=== PATIENT | female | born 1985 ===

== ENCOUNTER 2025-04-02 12:57 | Emergency (ER) | payer MEDICAID, SELFPAY ==
[2025-04-02 13:31] VITALS: BP 163/90; PULSE 116; RESP 18; TEMP 36.4; O2SAT 99; BMI 24.8
--- NOTE | 2025-04-02 13:36 | ED_ITS ---
HPI - General Adult General Chief complaint: General Medical Stated complaint: infection?, hearing issues Time Seen by Provider: 04/02/25 16:03 History of Present Illness ED Provider: autumn KABA narrative: Date & Time: 2025-04-02 Patient Name: MARIBEL: N: Author / Clinician: Jose Marie MD (Emergency Medicine) Chief Complaint Feeling very cold and unwell with throat tightness, bilateral ear pain/hearing loss, head pressure, and concern for spreading dental infection after tooth extraction earlier today. History of Present Illness The patient presents to the ED reporting a one-year history of right mandibular tooth pain/infection. The tooth was extracted this morning (08:30?10:00 AM) at a local dental clinic. The patient is unsure if the dentist?s antibiotic prescription was transmitted to the pharmacy and is concerned the infection has ?spread,? describing severe malaise and a sensation of imminent . Additional symptoms include: - Bilateral ear pain with inability to hear from the left ear (ongoing ?1 year) - Head pressure described as ?head feels like a helium balloon? - Throat pain and sensation of throat closing/choking - Shortness of breath with productive cough (?spitting stuff from chest?) - Lightheadedness; history of syncope episodes (~5 minutes duration) - Feeling very cold Past medical context noted by the patient: - ?Bad? diabetes; previously on Mounjaro and metformin - Reports recent weight gain of 25 lbs (from 118 lbs), possibly related to diabetes and medication lapse - Prone to pneumonia; recent severe pneumonia treated in [place] - History of adenoidectomy ([facility], childhood) - Reports prior diagnosis of ?edema? of the right ear or parotid region (details unclear) - Moved back to [place] ~2 weeks ago; PCP visit scheduled 06-05-2025 Review of Systems Positive: - General: Feeling very cold, severe discomfort, anxiety/worry. - HEENT: Bilateral ear pain, left-sided hearing loss x1 year, head pressure, throat pain, sensation of throat closing/choking, recent right lower molar extraction, ability to ?taste infection.? - Respiratory: Shortness of breath, productive cough, difficulty breathing. - Neurologic: Lightheadedness, history of syncope (past episodes lasting ~5 minutes). - Psychiatric: Anxiety/fear of dying. No other systems were discussed. Physical Examination Vital Signs: Measure Value ------- ----- Physical Exam: - General: Patient appears uncomfortable and anxious but in no acute respiratory distress. - Head/Face: Normal appearance; no visible swelling noted on exam. - Ears: Bilateral tympanic membranes visualized and ?look fine.? No acute infection seen. - Nose/Sinuses: No specific findings documented; patient reports pressure. - Mouth/Throat: Airway patent with good air movement. Oropharynx examined; extraction site of right lower molar visualized without comment of abscess or purulence. ?Say ah??normal. - Neck: No mention of lymphadenopathy or swelling on exam. - Lungs: Air moving well; no acute findings documented. - Cardiovascular: No specific abnormal findings reported. - Abdomen/Extremities: Denies abdominal pain or leg swelling; no findings documented. Emergency Department Course ? HEENT examination performed; ears and throat appeared normal aside from post- extraction site. ? Discussed patient?s concern about possible spreading dental infection; plan to prescribe antibiotics for oral infection if not already sent by dentist. ? Medication reconciliation performed; patient provided pharmacy refill list (Mounjaro, metformin, lamotrigine, venlafaxine, oxybutynin, cetirizine). Provider to refill chronic meds deemed appropriate. ? ENT referral information provided for chronic ear/hearing/sinus complaints. ? Nursing to administer ED medications as ordered (specific meds not stated in transcript). ? Patient counseled regarding need for PCP follow-up (appointment scheduled 06-05-2025). Medications Home/Chronic: Mounjaro 15 mg, metformin 500 mg BID, lamotrigine 200 mg daily, venlafaxine XR 225 mg daily, oxybutynin (intermittent), cetirizine OTC. Given/Prescribed in ED: Antibiotic for post-extraction dental infection (specific agent not documented in transcript). Chronic medication refills sent as reviewed above. Allergies No known drug allergies reported. Assessment & Plan Diagnosis: 1. Post-extraction dental infection (right mandibular molar) ? concern for inadequate outpatient antibiotic coverage. 2. Chronic bilateral ear pain with left hearing loss; chronic sinus/ear pressure. 3. Type 2 diabetes mellitus ? medication management issues (running out of Mounjaro/metformin); reports recent weight gain of 25 lbs. 4. Medication refills needed (lamotrigine, venlafaxine, others as listed). 5. Anxiety related to current illness. Plan: - Prescribe oral antibiotics for dental infection (sent to patient?s preferred pharmacy; specific agent per ED formulary). - Refill chronic medications as provided on patient list (Mounjaro, metformin, lamotrigine, venlafaxine, oxybutynin, cetirizine). - Provide ENT referral for evaluation of chronic ear/hearing/sinus complaints. - Encourage close follow-up with scheduled PCP appointment on 06-05-2025; advised to seek care sooner if symptoms worsen. Disposition Social / Living Situation Recently relocated back to [place] (~2 weeks ago); resides at [facility]. Past Medical/Surgical History - Type 2 diabetes mellitus - Recurrent pneumonia - Chronic ear/hearing issues (left > right) ? etiology undetermined - History of syncope episodes - Adenoidectomy (childhood, [facility]) Problem List 1. Dental infection ? post extraction 2. Diabetes mellitus ? medication lapse 3. Chronic ear/sinus complaints with hearing loss 4. Medication refills required 5. Anxiety Related Data Previous Rx's ?Medication ?Instructions ?Recorded amoxicillin 500 mg capsule 500 mg PO TID 5 days #15 ca ps 04/02/25 lamotrigine 200 mg tablet 200 mg PO DAILY #30 tabs 08/22 metformin 500 mg tablet 500 mg PO BID 30 days #60 ta bs 04/02/25 venlafaxine 225 mg tablet,extended 225 mg PO DAILY #30 tabs 04/02/25 release 24 hr Allergies Allergy/AdvReac Type Severity Reaction Status Date / Time No Known Allergies Allergy Verified 04/02/25 13:35 [facility] Social History Social History Advance Directives: No Advance Directives Information Provided: No Physical Exam ED Vital Signs: Vital Signs - 24 hr 04/02/25 16:00 04/02/25 17:16 Temperature 98.5 F 98.5 F Pulse Rate 94 94 Respiratory Rate 18 Blood Pressure 121/75 121/75 Pulse Oximetry 99 99 Oxygen Delivery Method Room Air Room Air BMI result Body Mass Index 24.8 Course Course Course Narrative: RME: 39-year-old female presents to ED for multiple complaints. Patient right leg willing to extracted this morning placed antibiotics but not complaining of abdominal pain pain spreading to the jaw and throat and concerned due to history of adrenal adenoma were as not been addressed. Patient is from [place]. On exam negative for signs of swelling or floor of the tongue, tongue swelling, pus drainage abscess or swelling of the gums, drawn line, or face. Negative for trismus or drooling/change in voice. Tonsils normal. Labs ordered Medical Decision Making Lab Data 04/02/25 14:51 04/02/25 14:51 Labs: Lab Results 04/02/25 Range/Units 14:51 WBC 7.7 (4.8-10.8) X10*3/uL RBC 3.73 L (4.20-5.50) X10*6/uL Hgb 10.3 L (12.0-16.0) g/dl Hct 33.0 L (37.0-47.0) % MCV 88.5 (80.0-98.0) fL MCH 27.6 (27.0-33.0) pg MCHC 31.2 (31.0-35.0) g/dl RDW 18.2 H (11.0-16.0) % Plt Count 518 H (160-400) X10*3/uL MPV 9.7 (9.4-12.3) fL Immature Gran % (Auto) 0.3 (0.0-0.4) % Neut % (Auto) 56.4 (45-73) % Lymph % (Auto) 33.1 (20-40) % [place] % (Auto) 8.2 (2-11) % Eos % (Auto) 0.8 (0-4) % Baso % (Auto) 1.2 (0-2) % Lymph # (Auto) 2.6 (1.2-4.9) X10*3/uL [place] # (Auto) 0.6 (0.1-1.2) X10*3/uL Eos # (Auto) 0.1 (0.0-0.4) X10*3/uL Baso # (Auto) 0.1 (0.0-0.2) X10*3/uL Abs Immat Gran (auto) 0.02 (0.00-0.03) X10*3/uL Absolute Neuts (auto) 4.4 (2.0-8.3) x10*3/uL Absolute Nucleated RBC 0.000 (0.0-0.012) X10*3/uL Nucleated RBC % (auto) 0.0 (0.0-0.2) /100WBC Sodium 139 (135-145) mmol/L Potassium 4.0 (3.3-5.1) mmol/L Chloride 107 (96-108) mmol/L Carbon Dioxide 26 (22-29) mmol/L Anion Gap 10 L (12-20) BUN 13 (9-16) mg/dL Creatinine 0.63 (0.5-1.4) mg/dL Estim Creat Clear Calc 106.8 Estimated GFR > 60 Random Glucose 90 (60-115) mg/dL Calcium 8.9 (8.4-10.2) mg/dL Total Bilirubin 0.2 (0.0-1.0) mg/dL AST 30 (5-31) U/L ALT 26 (0-31) U/L Alkaline Phosphatase 91 (39-117) U/L Total Protein 7.4 (6.5-8.0) g/dL Albumin 4.2 (3.5-5.0) g/dL Lipase 29 (8-78) U/L Beta HCG, Quant < 2 mIU/mL Urine Color Yellow Urine Appearance Clear Urine pH 6.5 (5.0-9.0) Ur Specific [place] 1.025 (1.005-1.025) Urine Protein Negative (Neg-Trace) mg/dL Urine Glucose (UA) Negative (Negative) mg/dL Urine Ketones Negative (Negative) mg/dL Urine Blood Negative (Negative) Urine Nitrite Negative (Negative) Ur Leukocyte Esterase Negative (Negative) Influenza Type A (PCR) NEGATIVE (Negative) Influenza Type B (PCR) NEGATIVE (Negative) RSV RNA Qual (PCR) NEGATIVE (Negative) SARS-CoV-2 RNA (RT-PCR) NEGATIVE (Negative) S. pyogenes GrpA DANYELLE Negative (Negative) Discharge Plan Discharge Clinical Impression: Dental infection, Pre-diabetes Patient Disposition: Home, Self-Care Instructions: Dental Abscess (ED) Additional Instructions: follow with ENT for your hearing issue: Akila?[phone] tel:[phone] Prescriptions: New lamotrigine 200 mg tablet 200 mg PO DAILY Qty: 30 0RF venlafaxine 225 mg tablet extended release 24hr 225 mg PO DAILY Qty: 30 0RF metformin 500 mg tablet 500 mg PO BID 30 Days Qty: 60 0RF amoxicillin 500 mg capsule 500 mg PO TID 5 Days Qty: 15 0RF Interventions: ED Discharge Assessment Last Done: 04/02/25 17:16 Discharge Date/Time: 04/02/25 17:17 Print Language: [place]er
[2025-04-02 15:00] LABS: MANUAL DIFF FLAG NO
[2025-04-02 15:05] LABS: Appearance Urine Clear; Glucose Urine UA Negative (Negative); PH 6.5 (5.0-9.0); Specific Gravity - Urine 1.025 (1.005-1.025)
[2025-04-02 15:08] LABS: Hematocrit 33.0 % (37.0-47.0); Hemoglobin 10.3 g/dl (12.0-16.0); Imm Gran Abs Auto 0.02 X10*3/uL (0.00-0.03); Imm Gran Pct Auto 0.3 % (0.0-0.4); Lymphocytes Absolute Auto 2.6 X10*3/uL (1.2-4.9); Mean Corpuscular HGB Conc 31.2 g/dl (31.0-35.0); Mean Corpuscular Hemoglobin 27.6 pg (27.0-33.0); Mean Corpuscular Volume 88.5 fL (80.0-98.0); NRBC Abs Auto 0.000 X10*3/uL (0.0-0.012); NRBC Pct Auto 0.0 /100WBC (0.0-0.2); Platelet Count 518 X10*3/uL (160-400); Red Blood Count 3.73 X10*6/uL (4.20-5.50); White Blood Count 7.7 X10*3/uL (4.8-10.8)
[2025-04-02 15:10] LABS: IDNOW Serial# 55D5AD1C; Strep A Nucleic Acid Negative (Negative)
[2025-04-02 15:27] LABS: Alanine Aminotransferase 26 U/L (0-31); Albumin Level 4.2 g/dL (3.5-5.0); Alkaline Phosphatase 91 U/L (39-117); Anion Gap 10 (12-20); Aspartate Amino Transferase 30 U/L (5-31); Blood Urea Nitrogen 13 mg/dL (9-16); Calcium 8.9 mg/dL (8.4-10.2); Carbon Dioxide 26 mmol/L (22-29); Chloride 107 mmol/L (96-108); Creatinine Clr Calc Pharmacy 106.8; Estimated Glomerular Filt Rate > 60; Lipase 29 U/L (8-78); Potassium 4.0 mmol/L (3.3-5.1); Sodium 139 mmol/L (135-145); Total Protein 7.4 g/dL (6.5-8.0)
[2025-04-02 15:40] LABS: Resp Syncy Virus RNA Qual PCR NEGATIVE (Negative); SARS COV2 PCR INHOUSE NEGATIVE (Negative)
[2025-04-02 16:00] VITALS: BP 121/75; PULSE 94; TEMP 36.9; O2SAT 99
--- NOTE | 2025-04-02 17:15 | PC.NURSE ---
pt not found at bedside to medicate and give d/c paperwork hospital attire on the bed
[2025-04-02 17:16] VITALS: BP 121/75; PULSE 94; RESP 18; TEMP 36.9; O2SAT 99
== END 2025-04-02 17:17 | disposition home or self-care (01) ==
PROVIDERS: Physician Assistant; Emergency Provider Emergency Medicine
DX: K04.7 Periapical abscess without sinus (principal); H92.03 Otalgia, bilateral; R73.03 Prediabetes; Z03.818 Encounter for observation for suspected exposure to other biological agents ruled out
CPT/HCPCS: 36415; 80053; 81003; 83690; 84702; 85025; 87637; 87651; 99283

== ENCOUNTER 2025-04-15 09:05 | Inpatient (IN) | payer MEDICARE, MEDICAID, SELFPAY ==
[2025-04-15 09:16] VITALS: BP 164/90; PULSE 110; RESP 18; TEMP 36.3; O2SAT 99; BMI 26.3
[2025-04-15 09:34] LABS: Appearance Urine Clear; Glucose Urine UA Negative (Negative); PH 6.0 (5.0-9.0); Specific Gravity - Urine 1.015 (1.005-1.025)
--- NOTE | 2025-04-15 09:34 | MHC.EDTECH ---
Patient changed over in family room with security present. Facial body jewelery still in place. patient resting in room four. Belongings locked in [place] port, three bags total.
[2025-04-15 09:36] LABS: UPreg QC Valid YES
--- NOTE | 2025-04-15 09:39 | ED_ITS ---
HPI - General Adult General Chief complaint: Psychiatric Symptoms Stated complaint: crisis Time Seen by Provider: 04/15/25 09:38 Source: patient Mode of arrival: ambulatory Limitations: no limitations History of Present Illness ED Provider: Liya Fernandez PA-C HPI narrative: Patient is a 39 year old female with a history of depression presenting to the emergency department today with increased depression. Patient states that she recently moved back to the area. Patient states that she is feeling more depressed but is not suicidal or homicidal. Patient states that she does not have any providers here and is not on any medication. Patient denies any other complaints at this time. Relieving factors: none Exacerbating factors: none Associated symptoms: denies other symptoms Treatments prior to arrival: none Related Data Previous Rx's ?Medication ?Instructions ?Recorded acetaminophen 325 mg tablet 650 mg (2 x 325 mg) PO Q6H PRN 04/17/25 Pain, Mild (Pain Scale 1-3) #0 tabs alprazolam 0.5 mg tablet 2 mg (4 x 0.5 mg) PO BID #14 tabs 04/17/25 dextroamphetamine-amphetamine ER 20 mg (2 x 10 mg) PO DAILY #7 caps 04/17/25 10 mg 24hr capsule,extend release (Adderall XR) lithium carbonate 300 mg tablet 300 mg PO DAILY #7 tab s 04/17/25 metformin 500 mg tablet 500 mg PO BIDWM #14 tabs nicotine (polacrilex) 2 mg buccal 2 mg buccal Q2H PRN Nicotine 04/17/25 lozenge Cravings #50 ea tirzepatide 15 mg/0.5 mL 15 mg (0.5 mL) subcut QWEEK #2 mL 04/17/25 subcutaneous pen injector (Mounjaro) Allergies Allergy/AdvReac Type Severity Reaction Status Date / Time No Known Allergies Allergy Verified 04/15/25 09:18 Review of Systems 2 Constitutional: Constitutional: Reports as per HPI Eyes: Eyes: Reports as per HPI ENT: Reports as per HPI Cardiovascular: Cardiovascular: Reports as per HPI Respiratory: Respiratory: Reports as per HPI Gastrointestinal: Gastrointestinal: Reports as per HPI Genitourinary: Genitourinary: Reports as per HPI Musculoskeletal: Musculoskeletal: Reports as per HPI Integumentary/Breasts: Skin/Breast: Reports as per HPI Neurologic: Reports as per HPI Psychiatric: Psychiatric: Reports as per HPI Endocrine: Endocrine: Reports as per HPI Hematologic/Lymphatic: Hematologic/Lymphatic: Reports as per HPI Allergic/Immunologic: Allergic/Immunologic: Reports as per HPI [facility] Past Medical History Attestation statement: The following information was validated with the patient. Source: old records reviewed and nursing notes reviewed Social History Social History Household Members: Spouse Housing: House Do you presently have visiting nurse or other home services: No Patient Tobacco Use Status: Never used Tobacco Currently Displaying Signs/Symptoms of Drug Intoxication Withdrawal: No Advance Directives: No Advance Directives Information Provided: Yes Do you have thoughts of harming others: None Do you have a plan to hurt others: No Plan Recently lost weight without trying: No How much weight loss: Not applicable Eating poorly because of decreased appetite: Yes Nutrition screen score: 1 Nutrition Risks: No Nutritional Risk Patient : No : No Poor oral hygiene: No Physical Exam ED Vital Signs: Vital Signs - 24 hr 04/15/25 09:16 04/15/25 14:00 04/16/25 03:20 Temperature 97.3 F 98.0 F Pulse Rate 110 H 90 Respiratory Rate 18 20 18 Blood Pressure 164/90 H 152/88 H 146/84 H Pulse Oximetry 99 100 Oxygen Delivery Method Room Air Room Air BMI result Body Mass Index 26.3 Const General: cooperative, no acute distress, alert and awake Nutritional Appearance: well nourished Orientation/consciousness: patient oriented x3 HENMT Head: Yes normal to inspection and Yes atraumatic Ears: hearing grossly normal bilaterally and external ears normal General nose exam: Normal external nose present, no nasal discharge noted and no epistaxis Face and sinus: Yes normal facial exam, No abrasion and No laceration Mouth: Normal oral and palatal mucosa present, no drooling and no muffled voice Eyes General: appearance normal, both eyes and all related structures Periorbital: periorbital findings normal Eyelids: Yes eyelids normal Conjunctivae: conjunctivae normal Pupils: Equal, round and reactive pupils present EOM: EOMs intact bilaterally Neck Neck: Yes normal visual inspection and Yes full ROM Resp Effort & Inspection: normal respiratory effort and able to speak in complete sentences Neuro General: patient oriented x3, moves all extremities and CN's II-XI intact bilaterally Cranial nerves: Yes Equal, round and reactive pupils present Cognition (Neuro): normal cognition Extrem General: Yes normal to inspection, Yes full ROM and Yes capillary refill normal Psych Appearance: grossly normal Mental Status: mental status grossly normal Affect: Sad affect present Attitude: cooperative Course Reevaluation(s) Reevaluation #1: Time: 05:07 Date: 04/16/25 Provider: Fabián Gonzalez MD Patient in physician observation for psychiatric evaluation.? No acute events reported overnight. No current complaints. VS stable, blood pressure of 146/84, patient asymptomatic we will monitor BP.? Patient was evaluated by the CARE team , meets inpatient level of care, patient is and in-patient bed search. Will continue to monitor. Time: 15:14 Date: 04/16/25 Provider: Fabián Gonzalez MD Physician observation ended at 15:14. Patient to be admitted as inpatient to psychiatry. Medications Administered Generic Name Dose Route Start Last Admin Trade Name Freq PRN Reason Stop Dose Admin Acetaminophen 650 mg 04/15/25 19:21 04/15/25 19:35 Acetaminophen 325 Mg Tablet PO 650 mg Q6H PRN Administration Pain, Mild (Pain Scale 1-3) Alprazolam 2 mg 04/16/25 21:00 04/17/25 06:23 Alprazolam 0.5 Mg Tablet PO 2 mg BID MELINA Administration Amphetamine/Dextroamphetamine 20 mg 04/17/25 09:00 04/17/25 09:16 Dextroamphetamine/Amphetamine Xr 10 Mg Cap.Er.24h PO 20 mg DAILY MELINA Administration Nicotine Polacrilex 2 mg 04/16/25 19:08 04/16/25 22:04 Nicotine Polacrilex Lozenge 2 Mg Lozenge BUCCAL 2 mg Q2H PRN Administration Nicotine Cravings Discontinued Medications Generic Name Dose Route Start Last Admin Trade Name Freq PRN Reason Stop Dose Admin Acetaminophen/Butalbital/Caffeine 1 tab 04/15/25 22:54 04/15/25 23:33 Butalb/Acetamin/Caff 50/325/40 Tablet PO 04/15/25 22:55 1 tab ONCE ONE Administration Alprazolam 2 mg 04/16/25 04:54 04/16/25 05:15 Alprazolam 0.5 Mg Tablet PO 04/16/25 04:55 2 mg ONCE ONE Administration Amphetamine/Dextroamphetamine 20 mg 04/16/25 04:54 04/16/25 05:13 Dextroamphetamine/Amphetamine Xr 10 Mg Cap.Er.24h PO 04/16/25 04:55 20 mg ONCE ONE Administration Ibuprofen 600 mg 04/15/25 19:21 04/15/25 19:35 Ibuprofen 600 Mg Tablet PO 600 mg Q6H PRN Administration Pain, Moderate(Pain Scale 4-6) [place] Carbonate 300 mg 04/16/25 21:00 04/16/25 21:13 [place] Carbonate Er 300 Mg Tablet.Er PO 300 mg BEDTIME MELINA Administration Lorazepam 1 mg 04/16/25 15:22 04/16/25 15:34 Lorazepam 1 Mg Tablet PO 1 mg Q4H PRN Administration Anxiety Nicotine Polacrilex 2 mg 04/16/25 11:22 04/16/25 11:42 Nicotine Polacrilex 2 Mg Gum BUCCAL 2 mg Q2H PRN Administration Nicotine Cravings Medical Decision Making Medical Decision Making MDM Narrative: Patient is a 39 year old female with a history of depression presenting to the emergency department today with increased depression. Patient's physical exam was as noted in the physical exam portion of this note. Patient's blood work was unremarkable. Patient's urine showed no acute process. Patient's EKG showed no obvious evidence of arrhythmia, ischemia, or infarct. Patient spoke with the CARE team who recommended inpatient level of psychiatric care. I explained my physical exam findings as well as all test results to the patient. I answered all questions asked by the patient. Patient placed in observation pending either admission here at [facility] for inpatient level of psychiatric care or transfer to an appropriate inpatient psychiatric facility. I was informed by our care team that patient will need inpatient level of care. We checked [facility] in the [employer] [place], patient does take Adderall 20 mg extended release every day and Xanax 2 mg b.i.d. Patient does not want to take any other medication that she has already been prescribed. We went ahead and prescribed the above-mentioned medications. Patient needs inpatient level of care. He did not continue trying to contact the patient's for further information. Differential Diagnosis Differential Diagnoses: The differential diagnosis associated with the presentation includes Depression Admission/Observation Consideration of admission/observation: Escalation of care including admission/observation considered Patient will either be admitted here at [facility] for inpatient level of psychiatric care or transfer to an appropriate inpatient psychiatric facility. Consult Healthcare Provider Management of the patient was discussed with: Behavioral Health Provider (spoke to the CARE team as noted in the MDM Rationale portion of this note. ) Lab Data [facility] Lab Attestation statement: I reviewed the patient's lab results. My interpretation of these results are in the MDM Rationale portion of this note. 04/15/25 09:58 04/15/25 09:58 Labs: Lab Results 04/15/25 04/15/25 04/16/25 Range/Units 09:23 09:58 03:24 WBC 6.3 (4.8-10.8) X10*3/uL RBC 3.04 L (4.20-5.50) X10*6/uL Hgb 8.6 L (12.0-16.0) g/dl Hct 27.1 L (37.0-47.0) % MCV 89.1 (80.0-98.0) fL MCH 28.3 (27.0-33.0) pg MCHC 31.7 (31.0-35.0) g/dl RDW 17.7 H (11.0-16.0) % Plt Count 312 D (160-400) X10*3/uL MPV 9.6 (9.4-12.3) fL Immature Gran % (Auto) 0.2 (0.0-0.4) % Neut % (Auto) 60.1 (45-73) % Lymph % (Auto) 26.7 (20-40) % [place]clean % (Auto) 11.0 (2-11) % Eos % (Auto) 1.0 (0-4) % Baso % (Auto) 1.0 (0-2) % Lymph # (Auto) 1.7 (1.2-4.9) X10*3/uL [place]clean # (Auto) 0.7 (0.1-1.2) X10*3/uL Eos # (Auto) 0.1 (0.0-0.4) X10*3/uL Baso # (Auto) 0.1 (0.0-0.2) X10*3/uL Abs Immat Gran (auto) 0.01 (0.00-0.03) X10*3/uL Absolute Neuts (auto) 3.8 (2.0-8.3) x10*3/uL Absolute Nucleated RBC 0.000 (0.0-0.012) X10*3/uL Nucleated RBC % (auto) 0.0 (0.0-0.2) /100WBC Sodium 139 (135-145) mmol/L Potassium 3.6 (3.3-5.1) mmol/L Chloride 110 H (96-108) mmol/L Carbon Dioxide 23 (22-29) mmol/L Anion Gap 10 L (12-20) BUN 13 (9-16) mg/dL Creatinine 0.58 (0.5-1.4) mg/dL Estim Creat Clear Calc 127.9 Estimated GFR > 60 POC Glucose 110 (60-115) mg/dL Random Glucose 114 (60-115) mg/dL Calcium 8.6 (8.4-10.2) mg/dL Total Bilirubin 0.2 (0.0-1.0) mg/dL AST 32 H (5-31) U/L ALT 37 H (0-31) U/L Alkaline Phosphatase 105 (39-117) U/L Total Protein 6.1 L (6.5-8.0) g/dL Albumin 3.4 L (3.5-5.0) g/dL Urine Color Yellow Urine Appearance Clear Urine pH 6.0 (5.0-9.0) Ur Specific [place] 1.015 (1.005-1.025) Urine Protein Negative (Neg-Trace) mg/dL Urine Glucose (UA) Negative (Negative) mg/dL Urine Ketones Negative (Negative) mg/dL Urine Blood Negative (Negative) Urine Nitrite Negative (Negative) Ur Leukocyte Esterase Negative (Negative) Urine Test NEGATIVE (NEGATIVE) Urine Opiates Screen Not Detected (Not Detect) Ur Buprenorphine Scrn Not Detected (Not Detect) ng/mL Ur Oxycodone Screen Not Detected (Not Detect) ng/mL Urine Methadone Screen Not Detected (Not Detect) ng/mL Urine Fentanyl Screen Not Detected (Not Detect) Ur Barbiturates Screen Not Detected (Not Detect) Ur Phencyclidine Scrn Not Detected (Not Detect) Ur Amphetamines Screen Not Detected (Not Detect) U Benzodiazepines Scrn Not Detected (Not Detect) Urine Cocaine Screen Not Detected (Not Detect) U Marijuana (THC) Screen POSITIVE H (Not Detect) Influenza Type A (PCR) (Negative) Influenza Type B (PCR) (Negative) RSV RNA Qual (PCR) (Negative) SARS-CoV-2 RNA (RT-PCR) (Negative) 04/16/25 Range/Units 03:28 WBC (4.8-10.8) X10*3/uL RBC (4.20-5.50) X10*6/uL Hgb (12.0-16.0) g/dl Hct (37.0-47.0) % MCV (80.0-98.0) fL MCH (27.0-33.0) pg MCHC (31.0-35.0) g/dl RDW (11.0-16.0) % Plt Count (160-400) X10*3/uL MPV (9.4-12.3) fL Immature Gran % (Auto) (0.0-0.4) % Neut % (Auto) (45-73) % Lymph % (Auto) (20-40) % Mclean % (Auto) (2-11) % Eos % (Auto) (0-4) % Baso % (Auto) (0-2) % Lymph # (Auto) (1.2-4.9) X10*3/uL [place]clean # (Auto) (0.1-1.2) X10*3/uL Eos # (Auto) (0.0-0.4) X10*3/uL Baso # (Auto) (0.0-0.2) X10*3/uL Abs Immat Gran (auto) (0.00-0.03) X10*3/uL Absolute Neuts (auto) (2.0-8.3) x10*3/uL Absolute Nucleated RBC (0.0-0.012) X10*3/uL Nucleated RBC % (auto) (0.0-0.2) /100WBC Sodium (135-145) mmol/L Potassium (3.3-5.1) mmol/L Chloride (96-108) mmol/L Carbon Dioxide (22-29) mmol/L Anion Gap (12-20) BUN (9-16) mg/dL Creatinine (0.5-1.4) mg/dL Estim Creat Clear Calc Estimated GFR POC Glucose (60-115) mg/dL Random Glucose (60-115) mg/dL Calcium (8.4-10.2) mg/dL Total Bilirubin (0.0-1.0) mg/dL AST (5-31) U/L ALT (0-31) U/L Alkaline Phosphatase (39-117) U/L Total Protein (6.5-8.0) g/dL Albumin (3.5-5.0) g/dL Urine Color Urine Appearance Urine pH (5.0-9.0) Ur Specific [place] (1.005-1.025) Urine Protein (Neg-Trace) mg/dL Urine Glucose (UA) (Negative) mg/dL Urine Ketones (Negative) mg/dL Urine Blood (Negative) Urine Nitrite (Negative) Ur Leukocyte Esterase (Negative) Urine Test (NEGATIVE) Urine Opiates Screen (Not Detect) Ur Buprenorphine Scrn (Not Detect) ng/mL Ur Oxycodone Screen (Not Detect) ng/mL Urine Methadone Screen (Not Detect) ng/mL Urine Fentanyl Screen (Not Detect) Ur Barbiturates Screen (Not Detect) Ur Phencyclidine Scrn (Not Detect) Ur Amphetamines Screen (Not Detect) U Benzodiazepines Scrn (Not Detect) Urine Cocaine Screen (Not Detect) U Marijuana (THC) Screen (Not Detect) Influenza Type A (PCR) NEGATIVE (Negative) Influenza Type B (PCR) NEGATIVE (Negative) RSV RNA Qual (PCR) NEGATIVE (Negative) SARS-CoV-2 RNA (RT-PCR) NEGATIVE (Negative) Independent Interpretation I performed an independent interpretation of an: EKG Interpretation: I independently interpreted this EKG and am in agreement with the below findings: Vent. Rate: 92 BPM Atrial Rate: 92 BPM P-R Int: 158 ms QRS Dur: 74 ms QT Int: 350 ms P-R-T Axes: 68 8 28 degrees QTcB Int: 432 ms Normal sinus rhythm No previous ECGs available DD/ 1222 Critical Care Time Critical Care Time Critical Care Time: Yes Total Critical Care Time: 36 Attestation: I spent 36 minutes of Critical Care Time with this patient. This does not include time spent on separately reported billable procedures. Discharge Plan Discharge Clinical Impression: Depression Qualifiers: Depression Type: other depression Qualified Code(s): F32.89 - Other specified depressive episodes Patient Disposition: Admitted As Inpatient Interventions: Admission Worksheet (ED) Last Done: 04/16/25 15:14 Discharge Date/Time: 04/16/25 15:15
[2025-04-15 09:46] LABS: Cannabinoid Screen Urine POSITIVE (Not Detect)
[2025-04-15 10:16] LABS: MANUAL DIFF FLAG NO
[2025-04-15 10:19] LABS: Hematocrit 27.1 % (37.0-47.0); Hemoglobin 8.6 g/dl (12.0-16.0); Imm Gran Abs Auto 0.01 X10*3/uL (0.00-0.03); Imm Gran Pct Auto 0.2 % (0.0-0.4); Lymphocytes Absolute Auto 1.7 X10*3/uL (1.2-4.9); Mean Corpuscular HGB Conc 31.7 g/dl (31.0-35.0); Mean Corpuscular Hemoglobin 28.3 pg (27.0-33.0); Mean Corpuscular Volume 89.1 fL (80.0-98.0); NRBC Abs Auto 0.000 X10*3/uL (0.0-0.012); NRBC Pct Auto 0.0 /100WBC (0.0-0.2); Platelet Count 312 X10*3/uL (160-400); Red Blood Count 3.04 X10*6/uL (4.20-5.50); White Blood Count 6.3 X10*3/uL (4.8-10.8)
[2025-04-15 10:37] LABS: Alanine Aminotransferase 37 U/L (0-31); Albumin Level 3.4 g/dL (3.5-5.0); Alkaline Phosphatase 105 U/L (39-117); Anion Gap 10 (12-20); Aspartate Amino Transferase 32 U/L (5-31); Blood Urea Nitrogen 13 mg/dL (9-16); Calcium 8.6 mg/dL (8.4-10.2); Carbon Dioxide 23 mmol/L (22-29); Chloride 110 mmol/L (96-108); Creatinine Clr Calc Pharmacy 127.9; Estimated Glomerular Filt Rate > 60; Potassium 3.6 mmol/L (3.3-5.1); Sodium 139 mmol/L (135-145); Total Protein 6.1 g/dL (6.5-8.0)
--- OUTSIDE RECORDS SUMMARY | 2025-04-15 10:39 | XMS_ITS | Patient Health Record ---
Author Organization [facility] Address [address] [place] [address] Care Team Providers Care Plugger Man Name Role Phone NO, PCP Primary Care Provider [facility], Nursing Unavailable [phone] Poly Zhong Unavailable [facility], W Unavailable [phone] Reason For Referral No Information Encounters Encounter Location Date Provider Diagnosis [address] [id number] 03/24/2025 [place] [address] [place] [address] 04/02/2025 [facility] [employer] [address] [place] [phone] 03/20/2025 Poly Zhong Plan Of Treatment Next Appt Details Provider Name:Nursing [facility], 06/05/2025 01:00:00 PM, [address] [place] [address], [phone], Insurance Providers Payer Name Payer Address Payer Phone Subscriber Number Group Number Insured Name Patient Relationship to Insured Coverage Start Date Coverage End Date [place] Medicaid Standard [address] [place] [address] [phone] [id number] Genevieve Akers Self - patient is the insured
--- NOTE | 2025-04-15 12:20 | ECG_ITS ---
Test Reason : MEDICAL CLEARANCE Blood Pressure : */* mmHG Vent. Rate : 92 BPM Atrial Rate : 92 BPM P-R Int : 158 ms QRS Dur : 74 ms QT Int : 350 ms P-R-T Axes : 68 8 28 degrees QTcB Int : 432 ms Normal sinus rhythm Possible Left atrial enlargement Low voltage QRS Borderline ECG No previous ECGs available Referred By: Liya Fernandez Electronically Signed By: Alfred Lentz
[2025-04-15 14:00] VITALS: BP 152/88; RESP 20
--- NOTE | 2025-04-15 18:23 | PC.NURSE ---
Pts comes to visit, she is tearful when he arrives, he stays for a short time.
[2025-04-15] MEDS: Butalb/Acetamin/Caff 50/325/40 TABLET 1 TAB PO (23:33)
--- NOTE | 2025-04-15 23:33 | PC.NURSE ---
Addendum entered by Mayuri Chandra RN 04/16/25 03:46: Per completed med rec by per previous RN, no known home medications listed. pt states she takes several home medications, found a list in previous visit reports. Pt requesting to go over medications with MD at this time. Addendum entered by Mayuri Chandra RN 04/16/25 03:25: pt requesting to be revaluated because she feels like shes dying and her organs are shutting down. pt reports increased sweating, dry heaves, vomiting and diarrhea (not noted on this shift and not reported from previous RN). 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 Pt has not displayed any signs or symptoms of distress, VSS, POC 110, and SARS swab pending at this time. Addendum entered by Mayuri Chandra RN 04/16/25 02:14: pt noted to be irritable and restless. pt given new gown per request, pt continues to complaining of headache and requesting her Excedrin, and asking tech when she can go up stairs. Tech explained to pt transfers are not ypically done in the middle of night, pt noted to be dismissive and rude and asked to be left alone. Original Note: assumed care for pt at 2100. pt awake and resting in bed with eyes closed complaining of 10/10 headache. Pt medicated per jun. plan of care ongoing
[2025-04-16 03:20] VITALS: BP 146/84; PULSE 90; RESP 18; TEMP 36.7; O2SAT 100
[2025-04-16 03:29] LABS: Glucose, Whole Blood 110 mg/dL (60-115)
[2025-04-16 04:09] LABS: Resp Syncy Virus RNA Qual PCR NEGATIVE (Negative); SARS COV2 PCR INHOUSE NEGATIVE (Negative)
[2025-04-16] MEDS: Dextroamphetamine/Amphetamine XR 10 MG CAP.ER.24H 20 MG PO (05:13)
--- NOTE | 2025-04-16 07:21 | PC.NURSE ---
Assumed care of patient at 0645, patient appears to be in no apparent distress this am, calm and cooperative, offering no complaints to this RN. Continue plan of care for IPLOC
[2025-04-16 15:30] VITALS: BP 134/95; PULSE 114; RESP 20; TEMP 36.4; O2SAT 100; BMI 26.5
--- NOTE | 2025-04-16 16:25 | PC.ADMIT ---
Pt arrived on the unit at 1519 and she is here on a CV. She self presented to [facility] and complained of worsening depression and thoughts of SI . Pt recently moved to [place] from [place] with her significant other. She has not been taking her medications for an unknown period of time and between this, the recent move, and a lack of supports, she feels destabilized. Pt became very triggered by this RN when she entered the POD due to RN wearing a mask and coughing as she walked in. She began to yell, wrap her face and body in a blanket, move around erratically, state that her mother from COVID, and insult staff. Three security guards assisted RN with transfer to . Pt was able to calm herself down after about an hour, once on unit, and she was then shown around the unit. THC + on toxicology screening, skin check didn't reveal any concerns. Pt currently denies SI/HI/AVH. She declined the flu shot. She reports that a few years ago she had an inpatient hospitalization on unit-reason unknown. She reports currently feeling hopeless, and poor sleep and appetite.
--- NOTE | 2025-04-16 21:24 | HO.PSYADMNOT ---
HPI Date of Service: 04/16/25 Chief Complaint: depression, anxiety Sources of Information: patient interviewed, chart reviewed and crisis/core team assessment reviewed HPI Subjective Notes: [place] Warning and Conditional Voluntary Healthcare Proxy: No Guardianship: No Medical Problems Affecting Mental Status: No Narrative: Per care team note: Patient is a 39 year old, , Anguillan speaking female with hx of type 2 diabetes, ADHD, bipolar who self presented to the ED reporting worsening depression and off her medications. Patient reported recently moving back to [place] and having limited support, not having access to her medications. Patient reported she has been off her medications for three weeks and reports feeling hopeless. Patient is not known to the CARE Team or behavioral health. Patient has been medically cleared. Patient reported at baseline she is able to maintain a job, loves to travel and able to attend to her ADLs. On M5: Reports reason she was brought to the hospital Iwas on major crisis'. Recently move to [place] from [place] after away from for about 12 years. (back in [place] since 03/16/2025). Since then she has no access to medication, for about 15-20 days as her provider from [place] could not transfer the scripts for her here. Her mood is all over the place, some what manic, tangential. Denies SI/SIB/HI/AVH. Reports history of SIB via cut with last cut was in 2016. Reports feeling paranoid people watch over my back and I am scared . Denies hallucinations. Reports 1 history of suicide attempts in September 20[address] [place] [address] . Reports poor sleep, but gained 25 lb due to not having Mounjaro for her diabetes since she moved to [place]. Legal issues: Denies Trauma history: Denies. However reports her childhood has traumatized with whole bunch of mental health issues that was not treated. Family history: Reports her mom has schizophrenic, dementia. Mom also has alcohol issues before she . Cousin kill herself in October 2024. Dad of colon cancer. Substance use: Reports she smoked weed a joint last use was yesterday morning. Smoke up to 9 cigarettes a day. Denies other substance use. No withdrawal symptoms at this time. Treatment history: 2-3 psychiatric hospitalizations. Last admission was in 2020. Was at respite a couple of times in the past. No PHP/detox history. One suicide attempt hx. Patient is A&O x3, wearing hospital attire, pleasant and cooperative, anxious with mood swings, appears be be somatic, hyper focused, perseverative on Mounjaro. She smiles happily but can be dramatic and making some cryring manner without tears at times throughout assessment, somewhat in manic side but no aggressive behavior. Poor concentration. Thought processes is organized with tangential. Speech is within normal limit, hyperverbal. Thought content is with treatment, no SI/SIB /HI/AVH, no CAH. Bright affect congruent with mood. Fair eye contact. poor judgment with fair insight. Past Psychiatric History: Patient reported hx of 2-3 IPLOC admissions between [id number] at [facility]. Last admission was in 2020. Was at respite a couple of times in the past. No PHP/detox history. One suicide attempt hx. Patient does not have any outpatient providers at this time since move back in [place] but was seen by psychiatrist in [place]. Medical Evaluation Reviewed: Yes [facility] Narrative: Bipolar ADHD Diabetes Family History: Reports her mom has schizophrenic, dementia. Mom also has alcohol issues before she . Cousin kill herself in October 2024. Dad of colon cancer. Social History: Currently homeless-been staying in the car, . No children. Recently moved from [facility] since February of this year to [place]. No outpatient providers/no family support. Limited community support. Have some college level. Has been deny from SSDI/used received SSDI. Substance History: Reports she smoked weed a joint last use was yesterday morning. Smoke up to 9 cigarettes a day. Denies other substance use. No withdrawal symptoms at this time. Trauma History: Denies. However reports her childhood has traumatized with whole bunch of mental health issues that was not treated. Diagnostics Vital Signs (24Hr): Vital Signs - 24 hr 04/16/25 03:20 04/16/25 15:30 Temperature 98.0 F 97.6 F Pulse Rate 90 114 H Respiratory Rate 18 20 Blood Pressure 146/84 H 134/95 H Pulse Oximetry 100 100 Oxygen Delivery Method Room Air Room Air BMI result Body Mass Index 26.5 Labs 04/15/25 09:58 04/15/25 09:58 Labs: Laboratory Results - last 48 hr 04/15/25 04/15/25 04/16/25 09:23 09:58 03:24 WBC 6.3 RBC 3.04 L Hgb 8.6 L Hct 27.1 L MCV 89.1 MCH 28.3 MCHC 31.7 RDW 17.7 H Plt Count 312 D MPV 9.6 Immature Gran % (Auto) 0.2 Neut % (Auto) 60.1 Lymph % (Auto) 26.7 [place] % (Auto) 11.0 Eos % (Auto) 1.0 Baso % (Auto) 1.0 Lymph # (Auto) 1.7 [place] # (Auto) 0.7 Eos # (Auto) 0.1 Baso # (Auto) 0.1 Abs Immat Gran (auto) 0.01 Absolute Neuts (auto) 3.8 Absolute Nucleated RBC 0.000 Nucleated RBC % (auto) 0.0 Sodium 139 Potassium 3.6 Chloride 110 H Carbon Dioxide 23 Anion Gap 10 L BUN 13 Creatinine 0.58 Estim Creat Clear Calc 127.9 Estimated GFR > 60 POC Glucose 110 Random Glucose 114 Calcium 8.6 Total Bilirubin 0.2 AST 32 H ALT 37 H Alkaline Phosphatase 105 Total Protein 6.1 L Albumin 3.4 L Urine Color Yellow Urine Appearance Clear Urine pH 6.0 Ur Specific [place] 1.015 Urine Protein Negative Urine Glucose (UA) Negative Urine Ketones Negative Urine Blood Negative Urine Nitrite Negative Ur Leukocyte Esterase Negative Urine Test NEGATIVE Urine Opiates Screen Not Detected Ur Buprenorphine Scrn Not Detected Ur Oxycodone Screen Not Detected Urine Methadone Screen Not Detected Urine Fentanyl Screen Not Detected Ur Barbiturates Screen Not Detected Ur Phencyclidine Scrn Not Detected Ur Amphetamines Screen Not Detected U Benzodiazepines Scrn Not Detected Urine Cocaine Screen Not Detected U Marijuana (THC) Screen POSITIVE H Influenza Type A (PCR) Influenza Type B (PCR) RSV RNA Qual (PCR) SARS-CoV-2 RNA (RT-PCR) 04/16/25 03:28 WBC RBC Hgb Hct MCV MCH MCHC RDW Plt Count MPV Immature Gran % (Auto) Neut % (Auto) Lymph % (Auto) [place] % (Auto) Eos % (Auto) Baso % (Auto) Lymph # (Auto) [place] # (Auto) Eos # (Auto) Baso # (Auto) Abs Immat Gran (auto) Absolute Neuts (auto) Absolute Nucleated RBC Nucleated RBC % (auto) Sodium Potassium Chloride Carbon Dioxide Anion Gap BUN Creatinine Estim Creat Clear Calc Estimated GFR POC Glucose Random Glucose Calcium Total Bilirubin AST ALT Alkaline Phosphatase Total Protein Albumin Urine Color Urine Appearance Urine pH Ur Specific [place] Urine Protein Urine Glucose (UA) Urine Ketones Urine Blood Urine Nitrite Ur Leukocyte Esterase Urine Test Urine Opiates Screen Ur Buprenorphine Scrn Ur Oxycodone Screen Urine Methadone Screen Urine Fentanyl Screen Ur Barbiturates Screen Ur Phencyclidine Scrn Ur Amphetamines Screen U Benzodiazepines Scrn Urine Cocaine Screen U Marijuana (THC) Screen Influenza Type A (PCR) NEGATIVE Influenza Type B (PCR) NEGATIVE RSV RNA Qual (PCR) NEGATIVE SARS-CoV-2 RNA (RT-PCR) NEGATIVE EKG EKG Comment: Per record, EKG was done on 04/15/25: Normal sinus rhythm Possible Left atrial enlargement Low voltage QRS Borderline ECG No previous ECGs available Meds/Allergies Allergies Allergies Allergy/AdvReac Type Severity Reaction Status Date / Time No Known Allergies Allergy Verified 04/15/25 09:18 Mental Status Exam Mental Status Exam Narrative: Patient is A&O x3, wearing hospital attire, pleasant and cooperative, anxious with mood swings, appears be be somatic, hyper focused, perseverative on Mounjaro. She smiles happily but can be dramatic and making some cryring manner without tears at times throughout assessment, somewhat in manic side but no aggressive behavior. Poor concentration. Thought processes is organized with tangential. Speech is within normal limit, hyperverbal. Thought content is with treatment, no SI/SIB /HI/AVH, no CAH. Bright affect congruent with mood. Fair eye contact. poor judgment with fair insight. Assessment & Plan Assessment & Plan (1) Bipolar disorder, unspecified: Status: Acute Code(s): F31.9 - Bipolar disorder, unspecified (2) Type II diabetes mellitus: Status: Acute Code(s): E11.9 - Type 2 diabetes mellitus without complications (3) ADHD: Status: Acute Code(s): F90.9 - Attention-deficit hyperactivity disorder, unspecified type Plan HPI: Patient is a 39 year old, , Anguillan speaking female with hx of type 2 diabetes, ADHD, and bipolar who self presented to the ED reporting worsening depression and off her medications. Patient reported recently moving back to [place] and having limited support, not having access to her medications. Patient reported she has been off her medications for three weeks and reports feeling hopeless. Patient is not known to the CARE Team or behavioral health. Patient has been medically cleared. Patient reported at baseline she is able to maintain a job, loves to travel and able to attend to her ADLs. Formulation/clinical reasoning: Off medication for about 2-3 weeks, no current outpatient provider as she just moved back to [place] from [place]. Limited support in community, limited family support, currently being homeless-been staying in the car. Increase in manic behavior, mood swing, tangential, anxious with poor sleep with SI. History of bipolar, ADHD. Given the above information, patient will be benefited in restrictive environment for her own safety, restart on medication, provide therapeutic environment with groups for coping skills, and refer patient to outpatient psychiatric services for aftercare. Hospital course: 04/16/25: Xanax 2 mg b.i.d. for severe anxiety and Adderall 20 mg daily in the morning for ADHD which patient claimed she was even this dose in [place]. We will monitor for manic behavior. Patient is very perseverative on this. She appeared to much calmer after she got her dose. [place] carbonate ER 300 at bedtime for bipolar. Plan to titrate up to therapeutic level to target bipolar behavior. Discussed with patient regarding indication, side effects included regularly checking on level, kidney and thyroid function. Advised patient to stay away from NSAIDs. Motrin was discontinued. Melatonin 6 mg at bedtime p.r.n. for insomnia Zyprexa 5 mg q.4 PRNs for agitation. Nicotine patch and lozenge p.r.n. for nicotine craving or withdrawal. POC BID- patient does not want to be checked q.i.d. Mounjaro 15 mg- IM once weekly: Patient has not taking that for 15 days. I do not believe we carry this medication. We will touch base with pharmacy in the morning. Plan Patient on 15 minute checks for safety. Admitted to . . Work with treatment team to do collateral Diagnostic and discharge planning. Patient educated on: diagnosis, medication risk/benefits, substance abuse and therapeutic strategies Informed Consent: understands and further education needed Reason for continued inpatient stay Substantial Risk for: med/psych decompensation Statement Statement: I have reviewed the history and physical and performed a pertinent examination on my patient. No changes have occurred unless specified. If the History and Physical was not performed prior to admission, the Hospitalist's service will be consulted for completing the admission physical. Time Spent With Patient Time: Total time managing care of this patient today ____ minutes.
[2025-04-16 22:00] VITALS: BP 137/77; PULSE 97; RESP 18; TEMP 36.6; O2SAT 100
[2025-04-16] MEDS: Nicotine Polacrilex Lozenge 2 MG LOZENGE BUCCAL (22:04)
--- NOTE | 2025-04-17 05:08 | PC.NURSE ---
Patient awake at 0445. She is upset that her room is cold and insists that she needs her medications. Genevieve said that she wants to be discharged today and actually wrote up a hand written discharge plans for her provider to review. She declined any offer of prns or hot tea.
--- NOTE | 2025-04-17 06:35 | PC.NURSE ---
Patient continues to be very upset, focused on feeling cold and wants to be out of this group home . Dr. Lay gave permission for her 2100 Xanax 2 mg po be given early. Patient accepted the Xanax early.
[2025-04-17 08:24] VITALS: BP 148/94; PULSE 104; RESP 17; TEMP 36; O2SAT 98
--- NOTE | 2025-04-17 08:25 | HO.PM.IMCN ---
History of Present Illness Data of Consult Service Date: 04/17/25 Primary Care Provider: None Physician HPI Reason for consult: Medical consult 39-year-old female with a past medical history of type 2 diabetes, HTN, ADHD, bipolar disorder, and depression presents to the emergency room with increased depression. In the ED her blood work was unremarkable, urine with no infection, EKG with normal sinus rhythm with no evidence of ischemia. Patient reports that she does much better when she is on her medications, recently moved here and does not have any providers. Has not been taking medications for her cholesterol,DM or hypertension. Lipid panels within normal limits, patient recently lost weight. Her A1c is 5.8. Review of Systems Review of Systems: Denies any shortness of breath, chest pain, headaches, dysuria, abdominal pain or discomfort, nausea, vomiting or diarrhea. Denies fever or chills. [facility] Medical History (Updated 04/17/25 @ 15:58 by Audra Ch DNP) PTSD (post-traumatic stress disorder) Social History Household Members: Spouse Housing: House Do you presently have visiting nurse or other home services: No Patient Tobacco Use Status: Never used Tobacco Currently Displaying Signs/Symptoms of Drug Intoxication Withdrawal: No Advance Directives: No Advance Directives Information Provided: Yes Do you have thoughts of harming others: None Do you have a plan to hurt others: No Plan Recently lost weight without trying: No How much weight loss: Not applicable Eating poorly because of decreased appetite: Yes Nutrition screen score: 1 Nutrition Risks: No Nutritional Risk Patient : No : No Poor oral hygiene: No service: No Sexual orientation: Straight/Heterosexual Meds Allergies Allergy/AdvReac Type Severity Reaction Status Date / Time No Known Allergies Allergy Verified 04/15/25 09:18 Active Medications: Current Medications Acetaminophen (Acetaminophen 325 Mg Tablet) 650 mg PO Q6H PRN PRN Reason: Pain, Mild (Pain Scale 1-3) Last Admin: 04/15/25 19:35 Dose: 650 mg Al Hydroxide/Mg Hydroxide (Magnesium Hydrox/Alum Hydrox 30 Ml Oral.Susp) 30 ml PO Q6H PRN PRN Reason: Heartburn/Nausea Alprazolam (Alprazolam 0.5 Mg Tablet) 2 mg PO BID MELINA Last Admin: 04/17/25 06:23 Dose: 2 mg Amphetamine/Dextroamphetamine (Dextroamphetamine/Amphetamine Xr 10 Mg Cap.Er.24h) 20 mg PO DAILY MELINA Hydroxyzine HCl (Hydroxyzine Hcl 25 Mg Tablet) 25 mg PO Q6H PRN PRN Reason: mild anxiety [place] Carbonate ([place] Carbonate Er 300 Mg Tablet.Er) 300 mg PO BEDTIME MELINA Last Admin: 04/16/25 21:13 Dose: 300 mg Magnesium Hydroxide (Milk Of Magnesia 30 Ml Oral.Susp) 30 ml PO DAILY PRN PRN Reason: Constipation Melatonin (Melatonin 3 Mg Tablet) 6 mg PO BEDTIME PRN PRN Reason: Insomnia Nicotine Polacrilex (Nicotine Polacrilex Lozenge 2 Mg Lozenge) 2 mg BUCCAL Q2H PRN PRN Reason: Nicotine Cravings Last Admin: 04/16/25 22:04 Dose: 2 mg Olanzapine (Olanzapine 5 Mg Tablet) 5 mg PO Q4H PRN PRN Reason: agitation Physical Exam Vital Signs and Narrative: Vital Signs: Last Vital Signs Temp 96.8 F 04/17/25 08:24 Pulse 104 H 04/17/25 08:24 Resp 17 04/17/25 08:24 BP 148/94 H 04/17/25 08:24 Pulse Ox 98 04/17/25 08:24 O2 Del Method Room Air 04/17/25 08:24 BMI result Body Mass Index 26.5 Alert and oriented X3, Manic, rapid speech, easily distractable. Answers questions. Neuro: CN II-X11 intact, no deficits, visual acuity intact EYES: PERRLA, EOM intact ENT: Hearing intact, MMM Cardiac: S1 S2 RRR, No ectopy Pulmonary: lungs clear to auscultation, No increased WOB. Abdominal: BS active in all 4 quadrants, no guarding or tenderness MSK: Strength 5/5 upper and lower extremities : Deferred Extremities: No edema in lower extremities Psych: Rapid speech, anxious Skin: Warm and dry, Intact Results Labs 04/15/25 09:58 04/15/25 09:58 Assessment and Plan (1) HTN (hypertension): Status: Acute Plan 39-year-old female with a past medical history listed below presented to ED with worsening depression off of her medications. Admitted for inpatient stabilization. Bipolar disorder/PTSD/depression Treatment per psychiatric team Type 2 diabetes Continue metformin, Mounjaro A1c 5.8 Hypertension/hyperlipidemia Lipid stable Start amlodipine 5 mg at HS Patient previously taking hypertensive meds but does not know the name. Thank you for allowing me to participate in the care of this patient. Will follow with you, please notify medical provider with any changes in condition or concerns.
[2025-04-17 08:40] LABS: Hemoglobin A1C 76.1496 umol/L
[2025-04-17 08:57] LABS: Cholesterol 196 mg/dL (<200); HDL Cholesterol 85 mg/dL (>40); Magnesium 2.0 mg/dL (1.6-2.6); Triglycerides 79 mg/dL (<150)
[2025-04-17 09:06] LABS: Free T4 (Free Thyroxine) 0.84 ng/dL (0.71-1.85); Thyroid Stimulating Hormone 1.14 uIU/mL (0.32-4.0)
[2025-04-17] MEDS: Dextroamphetamine/Amphetamine XR 10 MG CAP.ER.24H 20 MG PO (09:16)
[2025-04-17 09:20] LABS: Folate 12.0 ng/mL (> or = 4.0); Vitamin B12 382 pg/mL (200-900)
--- NOTE | 2025-04-17 10:01 | HO.PSYCHPN ---
Subjective Subjective Reason For Visit: depression, anxiety Diagnostics Vital Signs (24Hr): Vital Signs - 24 hr 04/16/25 15:30 04/16/25 22:00 04/17/25 08:24 Temperature 97.6 F 97.9 F 96.8 F Pulse Rate 114 H 97 104 H Respiratory Rate 20 18 17 Blood Pressure 134/95 H 137/77 148/94 H Pulse Oximetry 100 100 98 Oxygen Delivery Method Room Air Room Air Room Air BMI result Body Mass Index 26.5 Labs 04/15/25 09:58 04/15/25 09:58 Labs: Laboratory Results - last 48 hr 04/15/25 04/16/25 04/16/25 09:58 03:24 03:28 WBC 6.3 RBC 3.04 L Hgb 8.6 L Hct 27.1 L MCV 89.1 MCH 28.3 MCHC 31.7 RDW 17.7 H Plt Count 312 D MPV 9.6 Immature Gran % (Auto) 0.2 Neut % (Auto) 60.1 Lymph % (Auto) 26.7 [place] % (Auto) 11.0 Eos % (Auto) 1.0 Baso % (Auto) 1.0 Lymph # (Auto) 1.7 [place] # (Auto) 0.7 Eos # (Auto) 0.1 Baso # (Auto) 0.1 Abs Immat Gran (auto) 0.01 Absolute Neuts (auto) 3.8 Absolute Nucleated RBC 0.000 Nucleated RBC % (auto) 0.0 Sodium 139 Potassium 3.6 Chloride 110 H Carbon Dioxide 23 Anion Gap 10 L BUN 13 Creatinine 0.58 Estim Creat Clear Calc 127.9 Estimated GFR > 60 POC Glucose 110 Random Glucose 114 Estimat Average Glucose Hemoglobin A1c % Calcium 8.6 Magnesium Total Bilirubin 0.2 AST 32 H ALT 37 H Alkaline Phosphatase 105 Total Protein 6.1 L Albumin 3.4 L Triglycerides Cholesterol LDL Cholesterol, Calc HDL Cholesterol Vitamin B12 Folate TSH Free T4 Influenza Type A (PCR) NEGATIVE Influenza Type B (PCR) NEGATIVE RSV RNA Qual (PCR) NEGATIVE SARS-CoV-2 RNA (RT-PCR) NEGATIVE 04/17/25 08:13 WBC RBC Hgb Hct MCV MCH MCHC RDW Plt Count MPV Immature Gran % (Auto) Neut % (Auto) Lymph % (Auto) [place] % (Auto) Eos % (Auto) Baso % (Auto) Lymph # (Auto) [place] # (Auto) Eos # (Auto) Baso # (Auto) Abs Immat Gran (auto) Absolute Neuts (auto) Absolute Nucleated RBC Nucleated RBC % (auto) Sodium Potassium Chloride Carbon Dioxide Anion Gap BUN Creatinine Estim Creat Clear Calc Estimated GFR POC Glucose Random Glucose Estimat Average Glucose 120 Hemoglobin A1c % 5.8 Calcium Magnesium 2.0 Total Bilirubin AST ALT Alkaline Phosphatase Total Protein Albumin Triglycerides 79 Cholesterol 196 LDL Cholesterol, Calc 96 HDL Cholesterol 85 Vitamin B12 382 Folate 12.0 TSH 1.14 Free T4 0.84 Influenza Type A (PCR) Influenza Type B (PCR) RSV RNA Qual (PCR) SARS-CoV-2 RNA (RT-PCR) Medications Medications Current Medications Acetaminophen (Acetaminophen 325 Mg Tablet) 650 mg PO Q6H PRN PRN Reason: Pain, Mild (Pain Scale 1-3) Last Admin: 04/15/25 19:35 Dose: 650 mg Al Hydroxide/Mg Hydroxide (Magnesium Hydrox/Alum Hydrox 30 Ml Oral.Susp) 30 ml PO Q6H PRN PRN Reason: Heartburn/Nausea Alprazolam (Alprazolam 0.5 Mg Tablet) 2 mg PO BID REPLACED BY [facility] Last Admin: 04/17/25 06:23 Dose: 2 mg Amphetamine/Dextroamphetamine (Dextroamphetamine/Amphetamine Xr 10 Mg Cap.Er.24h) 20 mg PO DAILY REPLACED BY [facility] Last Admin: 04/17/25 09:16 Dose: 20 mg Hydroxyzine HCl (Hydroxyzine Hcl 25 Mg Tablet) 25 mg PO Q6H PRN PRN Reason: mild anxiety [place] Carbonate ([place] Carbonate Er 300 Mg Tablet.Er) 300 mg PO BEDTIME REPLACED BY [facility] Last Admin: 04/16/25 21:13 Dose: 300 mg Magnesium Hydroxide (Milk Of Magnesia 30 Ml Oral.Susp) 30 ml PO DAILY PRN PRN Reason: Constipation Melatonin (Melatonin 3 Mg Tablet) 6 mg PO BEDTIME PRN PRN Reason: Insomnia Nicotine Polacrilex (Nicotine Polacrilex Lozenge 2 Mg Lozenge) 2 mg BUCCAL Q2H PRN PRN Reason: Nicotine Cravings Last Admin: 04/16/25 22:04 Dose: 2 mg Olanzapine (Olanzapine 5 Mg Tablet) 5 mg PO Q4H PRN PRN Reason: agitation Allergies Allergies Allergy/AdvReac Type Severity Reaction Status Date / Time No Known Allergies Allergy Verified 04/15/25 09:18 Assessment & Plan Assessment & Plan (1) Bipolar disorder, unspecified: Status: Acute Code(s): F31.9 - Bipolar disorder, unspecified (2) Type II diabetes mellitus: Status: Acute Code(s): E11.9 - Type 2 diabetes mellitus without complications (3) ADHD: Status: Acute Code(s): F90.9 - Attention-deficit hyperactivity disorder, unspecified type Plan HPI: Patient is a 39 year old, , Romanian speaking female with hx of type 2 diabetes, ADHD, and bipolar who self presented to the ED reporting worsening depression and off her medications. Patient reported recently moving back to [place] and having limited support, not having access to her medications. Patient reported she has been off her medications for three weeks and reports feeling hopeless. Patient is not known to the CARE Team or behavioral health. Patient has been medically cleared. Patient reported at baseline she is able to maintain a job, loves to travel and able to attend to her ADLs. Formulation/clinical reasoning: Off medication for about 2-3 weeks, no current outpatient provider as she just moved back to [place] from [place]. Limited support in community, limited family support, currently being homeless-been staying in the car. Increase in manic behavior, mood swing, tangential, anxious with poor sleep with SI. History of bipolar, ADHD. Given the above information, patient will be benefited in restrictive environment for her own safety, restart on medication, provide therapeutic environment with groups for coping skills, and refer patient to outpatient psychiatric services for aftercare. Hospital course: 04/16/25: Xanax 2 mg b.i.d. for severe anxiety and Adderall 20 mg daily in the morning for ADHD which patient claimed she was even this dose in [place]. We will monitor for manic behavior. Patient is very perseverative on this. She appeared to much calmer after she got her dose. [place] carbonate ER 300 at bedtime for bipolar. Plan to titrate up to therapeutic level to target bipolar behavior. Discussed with patient regarding indication, side effects included regularly checking on level, kidney and thyroid function. Advised patient to stay away from NSAIDs. Motrin was discontinued. Melatonin 6 mg at bedtime p.r.n. for insomnia Zyprexa 5 mg q.4 PRNs for agitation. Nicotine patch and lozenge p.r.n. for nicotine craving or withdrawal. POC BID- patient does not want to be checked q.i.d. Mounjaro 15 mg- IM once weekly: Patient has not taking that for 15 days. I do not believe we carry this medication. We will touch base with pharmacy in the morning. Plan Patient on 15 minute checks for safety. Admitted to . CV. Work with treatment team to do collateral Diagnostic and discharge planning. Time Spent With Patient Time: Total time managing care of this patient today ____ minutes.
--- NOTE | 2025-04-17 14:27 | PM.PSYDC ---
DS: Providers Provider Date of admission: 04/16/25 11:55 Date of discharge: 04/17/25 Primary care physician: None Physician Admitting clinician: Sonia Winter Attending physician on admission: Niels Ferreira Attending physician on discharge: Niels Ferreira Discharging clinician: Sera Wesley DS: Diagnosis Discharge Diagnosis (1) Bipolar disorder, unspecified: Status: Acute (2) Type II diabetes mellitus: Status: Acute (3) ADHD: Status: Acute (4) PTSD (post-traumatic stress disorder): Status: Acute DS: Medications Discharge Medications Home Medications: Previous Rx's ?Medication ?Instructions ?Recorded acetaminophen 325 mg tablet 650 mg (2 x 325 mg) PO Q6H PRN 04/17/25 Pain, Mild (Pain Scale 1-3) #0 tabs alprazolam 2 mg tablet (Xanax) 2 mg PO BID #14 tabs 04/17/25 dextroamphetamine-amphetamine ER 20 mg (2 x 10 mg) PO DAILY #7 caps 04/17/25 10 mg 24hr capsule,extend release (Adderall XR) lithium carbonate 300 mg tablet 300 mg PO DAILY #7 tabs 04/17/25 metformin 500 mg tablet 500 mg PO BIDWM #14 tabs 04/17/25 nicotine (polacrilex) 2 mg buccal 2 mg buccal Q2H PRN Nicotine 04/17/25 lozenge Cravings #50 ea tirzepatide 15 mg/0.5 mL 15 mg (0.5 mL) subcut QWEEK #2 mL 04/17/25 subcutaneous pen injector ([place]) Mental Status Exam Mental Status Exam Patient Appearance: Appropriate Patient Orientation: Person, Place, Time and Situation Level of Consciousness: Restless and Alert Patient Behavior: Talkative, Restless, Anxious, Fearful and Good Eye Contact Mood Description: Labile Affect Description: Labile Patient Cognition Impaired: No Ability to Follow Directions: Good Speech Pattern: Spontaneous Speech Memory Description: Intact Hallucinations: None Delusions: Not Present Perceptual Disturbances: Depersonalization and Derealization Thought Process: Distracted and Rumination Thought Content: positive for Circumstantial, positive for Perseveration and positive for Suicidal Ideation (denies) Depressive Symptoms: Increased Anxiety Judgement: Fair Data Data Completed and Pending Completed studies during hospitalization [Text1]: 04/15/25 04/15/2504/16/25 09:23 09:58 03:24 WBC 6.3 RBC 3.04 L Hgb 8.6 L Hct 27.1 L MCV 89.1 MCH 28.3 MCHC 31.7 RDW 17.7 H Plt Count 312 D MPV 9.6 Immature Gran % (Auto) 0.2 Neut % (Auto) 60.1 Lymph % (Auto) 26.7 Cobb % (Auto) 11.0 Eos % (Auto) 1.0 Baso % (Auto) 1.0 Lymph # (Auto) 1.7 Cobb # (Auto) 0.7 Eos # (Auto) 0.1 Baso # (Auto) 0.1 Abs Immat Gran (auto) 0.01 Absolute Neuts (auto) 3.8 Absolute Nucleated RBC 0.000 Nucleated RBC % (auto) 0.0 Sodium 139 Potassium 3.6 Chloride 110 H Carbon Dioxide 23 Anion Gap 10 L BUN 13 Creatinine 0.58 Estim Creat Clear Calc 127.9 Estimated GFR > 60 POC Glucose 110 Random Glucose 114 Estimat Average Glucose Hemoglobin A1c % Calcium 8.6 Magnesium Total Bilirubin 0.2 AST 32 H ALT 37 H Alkaline Phosphatase 105 Total Protein 6.1 L Albumin 3.4 L Triglycerides Cholesterol LDL Cholesterol, Calc HDL Cholesterol Vitamin B12 Folate TSH Free T4 Urine Color Yellow Urine Appearance Clear Urine pH 6.0 Ur Specific [place] 1.015 Urine Protein Negative Urine Glucose (UA) Negative Urine Ketones Negative Urine Blood Negative Urine Nitrite Negative Ur Leukocyte Esterase Negative Urine Test NEGATIVE Urine Opiates Screen Not Detected Ur Buprenorphine Scrn Not Detected Ur Oxycodone Screen Not Detected Urine Methadone Screen Not Detected Urine Fentanyl Screen Not Detected Ur Barbiturates Screen Not Detected Ur Phencyclidine Scrn Not Detected Ur Amphetamines Screen Not Detected U Benzodiazepines Scrn Not Detected Urine Cocaine Screen Not Detected U Marijuana (THC) Screen POSITIVE H Influenza Type A (PCR) Influenza Type B (PCR) RSV RNA Qual (PCR) SARS-CoV-2 RNA (RT-PCR) 04/16/25 04/17/25 03:28 08:13 WBC RBC Hgb Hct MCV MCH MCHC RDW Plt Count MPV Immature Gran % (Auto) Neut % (Auto) Lymph % (Auto) Cobb % (Auto) Eos % (Auto) Baso % (Auto) Lymph # (Auto) Cobb # (Auto) Eos # (Auto) Baso # (Auto) Abs Immat Gran (auto) Absolute Neuts (auto) Absolute Nucleated RBC Nucleated RBC % (auto) Sodium Potassium Chloride Carbon Dioxide Anion Gap BUN Creatinine Estim Creat Clear Calc Estimated GFR POC Glucose Random Glucose Estimat Average Glucose 120 Hemoglobin A1c % 5.8 Calcium Magnesium 2.0 Total Bilirubin AST ALT Alkaline Phosphatase Total Protein Albumin Triglycerides 79 Cholesterol 196 LDL Cholesterol, Calc 96 HDL Cholesterol 85 Vitamin B12 382 Folate 12.0 TSH 1.14 Free T4 0.84 Urine Color Urine Appearance Urine pH Ur Specific [place] Urine Protein Urine Glucose (UA) Urine Ketones Urine Blood Urine Nitrite Ur Leukocyte Esterase Urine Test Urine Opiates Screen Ur Buprenorphine Scrn Ur Oxycodone Screen Urine Methadone Screen Urine Fentanyl Screen Ur Barbiturates Screen Ur Phencyclidine Scrn Ur Amphetamines Screen U Benzodiazepines Scrn Urine Cocaine Screen U Marijuana (THC) Screen Influenza Type A (PCR) NEGATIVE Influenza Type B (PCR) NEGATIVE RSV RNA Qual (PCR) NEGATIVE SARS-CoV-2 RNA (RT-PCR) NEGATIVE DS: Summary Hospital Course Hospital Course: Per care team note: Patient is a 39 year old, , Portuguese speaking female with hx of type 2 diabetes, ADHD, bipolar who self presented to the ED reporting worsening depression and off her medications. Patient reported recently moving back to [place] and having limited support, not having access to her medications. Patient reported she has been off her medications for three weeks and reports feeling hopeless. Patient is not known to the CARE Team or behavioral health. Patient has been medically cleared. Patient reported at baseline she is able to maintain a job, loves to travel and able to attend to her ADLs. On M5: Reports reason she was brought to the hospital Iwas on major crisis'. Recently move to [place] from [place] after away from for about 12 years. (back in [place] since 03/16/2025). Since then she has no access to medication, for about 15-20 days as her provider from [place] could not transfer the scripts for her here. Her mood is all over the place, some what manic, tangential. Denies SI/SIB/HI/AVH. Reports history of SIB via cut with last cut was in 2016. Reports feeling paranoid people watch over my back and I am scared . Denies hallucinations. Reports 1 history of suicide attempts in September 2024 going to the ditch . Reports poor sleep, but gained 25 lb due to not having Mounjaro for her diabetes since she moved to [place]. Met with pt this a.m. who denies SI,HI,AH,VH. She has pressured speech and is very upset that the unit feels like she is being punished and is incarcerated. Upset that there is no heat and beds are too uncomfortable to sleep on. She requests discharge and will follow up with out pt resources given to her. Discussed precipitants to admit- I need to get back on my medications . I have trauma . This place is not a healing place. Call to [facility]'s [facility] [phone] and talked with pts pharmacist. The following are active prescriptions... Lamictal XR tapering completed. Sugarloaf 300 mg daily Adderall 20 mg a.m. Latuda 40 mg daily-pt has stopped Xanax 2 mg bid Mounjaro 15 mg sc weekly Venlafaxine XR 225 mg daily-pt has stopped Metformin 500 mg bid Oxybutin 5 mg prn for bladder spasm- pt not using Fiorcet q4 hours prn migraine Zyrtec prn. Seven days of medications prescribed to [facility], where pt will be establishing primary care-Adderall, Xanax, Mounjaro, Metformin, Sugarloaf Discussed AMA discharge with pt, asking her to remain for the weekend so we can re-establish medications, lithium and plan aftercare. Pt declines-prefers to do a walk in with [facility] or [facility], return to her , hotel and support dog. This place is not acceptable . AMA discharge planned. in support and cosigned paperwork. transported pt at 1315pm. Pt was encouraged to call, return if needed. Status at Discharge Functional status at discharge: independent ambulation Overall status at discharge: patient is progressing back to baseline Time Spent with Patient Time attestation: Total time managing care of this patient today ____ minutes. Time spent: Less than 30 minutes Discharge Plan Discharge Anticipated Discharge Date/Time: 04/17/25 00:00 Patient Disposition: Home, Self-Care Discharge Diagnosis: Bipolar disorder PTSD ADHD DM [facility] [Other] - 1 Week Referral Note: You may walk-in at the above address M-F 8am-7pm or Sat/Sun 9am-5pm, or call the above number to schedule an intake appointment to be referred for outpatient mental health providers and/or case management services. [facility]: [facility] [Other] - 1 Week Referral Note: You may walk-in at the above address M-F 8am-7pm or Sat/Sun 9am-5pm, or call the above number to schedule an intake appointment to be referred for outpatient mental health providers and/or case management services. Physician,None [Primary Care Provider, Medical] - 1 Week Discharge Medications: New metformin 500 mg Tablet 500 mg PO BIDWM Qty: 14 0RF acetaminophen 325 mg Tablet 650 mg PO Q6H PRN (Reason: Pain, Mild (Pain Scale 1-3)) Qty: 0 0RF dextroamphetamine-amphetamine [Adderall XR] 10 mg Capsule,Extended Release 24hr 20 mg PO DAILY Qty: 7 0RF Rx Instructions: Partial Fill upon patient request. lithium carbonate 300 mg Tablet 300 mg PO DAILY Qty: 7 0RF nicotine (polacrilex) 2 mg Lozenge 2 mg buccal Q2H PRN (Reason: Nicotine Cravings) Qty: 50 0RF Mounjaro 15 mg/0.5 mL pen injector 15 mg subcut QWEEK Qty: 2 0RF alprazolam [Xanax] 2 mg tablet 2 mg PO BID Qty: 14 0RF Discharge Orders: Discharge Order (Routine); Ordered 04/17/25 Ordered By: Sera Wesley Diet: Advance to usual diet Activity on Discharge: As tolerated Stand Alone Forms: Patient Portal Discharge page, Community Support Print Language: Portuguese Care Plan Goals: Maintain mood and safe behaviors Take medications as prescribed. We have sent in one week of meds to [facility] where you are applying for primary care coverage Practice coping skills Out pt walk in provider suggestions are written on this sheet. Health Concerns: Mood Stability Plan of Treatment: Pt has chosen to leave against medical advice She will follow up with walk in provider suggestions given to her by social media project manager One week's worth of meds has been sent to [facility] Medications have been verified with [facility] [phone] Pt has stopped Lamictal, Venlafaxine, Latuda. She has re-started a small dosage of Sugarloaf Assessment: Pt has chosen to leave against medical advice. She identifies environmental issues which we have not addressed-the lack of heat on the unit, the lack of comfort in the bed she was provided. She reports the environment makes her feel incarcerated, not being given treatment. She prefers to return to her hotel. She denies SI,HI,AH,VH. She has pressure of speech when discussing her frustrations, then she is able to calm, discuss concerns reasonably and discuss why this is not the environment she is looking for at this time. She is fully oriented She has insight around continuing treatment and will present at one of the walk in clinic to re-establish her plan of care. She is not in imminent risk of harm- lives with her and dogs in a hotel. She will present to the closest ER, call crisis or 911 if feeling unsafe. She has not engaged in behaviors that indicate dangerousness to self or others, or a lack of impulse control, besides loud verbalizations to team and provider. Discharge Date/Time: 04/17/25 13:10
--- NOTE | 2025-04-28 10:07 | PM.EVENT ---
Documented by User: Sera Wesley APRN 04/28/25 10:12 Event Note Date of Service: 04/27/25 Event Note: Call from pt and . [phone] reports pt will need a 60 day supply of medications to get her to a scheduled appt on 06/01/25. Discussed with that given the AMA discharge we would not be able to provide these. Discussed [facility] walk in resources. Pt, at that time came onto the phone and was verbally abusive, yelling and accusatory. Again encouraged pt to attend [facility] walk in clinic as was discussed when discharged from in pt care. Time Spent With Patient Time: Total time managing care of this patient today ____ minutes. Documented by User: Niels Ferreira MD 04/28/25 17:16 Event Note Date of Service: 04/28/25
== END 2025-04-17 13:10 | disposition home or self-care (01) | DRG 885 ==
LOC: HO.ED 04-16 12:31 → HO.PM5 04-16 13:51
PROVIDERS: Physician Assistant Medical; Admitting Provider Clinical Nurse Specialist Psychiatric/Mental Health, Adult; Emergency Provider Emergency Medicine Emergency Medical Services; Visit Provider Clinical Nurse Specialist Psychiatric/Mental Health, Adult
DX: F31.9 Bipolar disorder, unspecified (principal); F43.10 Post-traumatic stress disorder, unspecified; I10 Essential (primary) hypertension; E78.5 Hyperlipidemia, unspecified; F90.9 Attention-deficit hyperactivity disorder, unspecified type; E11.9 Type 2 diabetes mellitus without complications; Z20.822 Contact with and (suspected) exposure to COVID-19; Z79.84 Long term (current) use of oral hypoglycemic drugs; Z79.899 Other long term (current) drug therapy
CPT/HCPCS: 36415; 80053; 80061; 80307; 81003; 81025; 82607; 82746; 82947; 83036; 83735; 84439; 84443; 85025; 87637; 93005; 99285; S9485

== ENCOUNTER → 2025-04-15 12:20 | Outpatient (BNV) | payer MEDICAID, SELFPAY | PROVIDERS: Emergency Provider Emergency Medicine Emergency Medical Services; Visit Provider Internal Medicine Cardiovascular Disease | DX: Z13.6 Encounter for screening for cardiovascular disorders (principal) | CPT/HCPCS: 93010 ==

== ENCOUNTER → 2025-04-16 11:55 | Outpatient (BNV) | payer MEDICARE, MEDICAID, SELFPAY | PROVIDERS: Admitting Provider Clinical Nurse Specialist Psychiatric/Mental Health, Adult; Emergency Provider Emergency Medicine Emergency Medical Services; Visit Provider Nurse Practitioner Family | DX: I10 Essential (primary) hypertension (principal) | CPT/HCPCS: 99221 ==

== ENCOUNTER → 2025-04-16 11:55 | Outpatient (BNV) | payer MEDICARE, MEDICAID, SELFPAY | PROVIDERS: Admitting Provider Clinical Nurse Specialist Psychiatric/Mental Health, Adult; Emergency Provider Emergency Medicine Emergency Medical Services; Visit Provider Nurse Practitioner Psychiatric/Mental Health | DX: F31.9 Bipolar disorder, unspecified (principal); F43.11 Post-traumatic stress disorder, acute; F90.9 Attention-deficit hyperactivity disorder, unspecified type; E11.9 Type 2 diabetes mellitus without complications | CPT/HCPCS: 90792; 99238; 99499 ==

== ENCOUNTER 2025-04-26 11:02 | Emergency (ER) | payer MEDICARE, MEDICAID, SELFPAY ==
[2025-04-26 11:21] VITALS: BP 145/7; PULSE 100; RESP 20; TEMP 37.6; O2SAT 100; BMI 25.8
--- NOTE | 2025-04-26 11:21 | ED_ITS ---
HPI - General Adult General Chief complaint: General Medical Stated complaint: Mental Health Medication Time Seen by Provider: 04/26/25 11:25 Source: patient and family (patient's ) Mode of arrival: ambulatory Limitations: no limitations History of Present Illness ED Provider: Liya Fernandez PA-C HPI narrative: Patient is a 39 year old female with a history of HTN, PTSD, ADHD, DM, and bipolar disorder presenting to the emergency department today for a medication dose. Patient states that she was recently seen here for depression and had her medications adjusted / restarted. Patient states that she was given a weeks worth of them and is now out. Patient's states that the patient needs a dose of her medications here today and then they'll be able to call her provider tomorrow to get them refilled. Patient denies any complaints at this time. Patient denies any thoughts of hurting herself or others. Relieving factors: none Exacerbating factors: none Associated symptoms: denies other symptoms Treatments prior to arrival: none Related Data Previous Rx's ?Medication ?Instructions ?Recorded acetaminophen 325 mg tablet 650 mg (2 x 325 mg) PO Q6H PRN 04/17/25 Pain, Mild (Pain Scale 1-3) #0 tabs alprazolam 2 mg tablet (Xanax) 2 mg PO BID #14 tabs dextroamphetamine-amphetamine ER 20 mg (2 x 10 mg) PO DAILY #7 caps 04/17/25 10 mg 24hr capsule,extend release (Adderall XR) lithium carbonate 300 mg tablet 300 mg PO DAILY #7 tab s 04/17/25 metformin 500 mg tablet 500 mg PO BIDWM #14 tabs nicotine (polacrilex) 2 mg buccal 2 mg buccal Q2H PRN Nicotine 04/17/25 lozenge Cravings #50 ea tirzepatide 15 mg/0.5 mL 15 mg (0.5 mL) subcut QWEEK #2 mL 04/17/25 subcutaneous pen injector ([place]ernesto) Allergies Allergy/AdvReac Type Severity Reaction Status Date / Time No Known Allergies Allergy Verified 04/26/25 11:27 Review of Systems Constitutional: Constitutional: Reports as per HPI Eyes: Eyes: Reports as per HPI ENT: Reports as per HPI Cardiovascular: Cardiovascular: Reports as per HPI Respiratory: Respiratory: Reports as per HPI Gastrointestinal: Gastrointestinal: Reports as per HPI Genitourinary: Genitourinary: Reports as per HPI Musculoskeletal: Musculoskeletal: Reports as per HPI Integumentary/Breasts: Skin/Breast: Reports as per HPI Neurologic: Reports as per HPI Psychiatric: Psychiatric: Reports as per HPI Endocrine: Endocrine: Reports as per HPI Hematologic/Lymphatic: Hematologic/Lymphatic: Reports as per HPI Allergic/Immunologic: Allergic/Immunologic: Reports as per HPI [facility] Past Medical History Attestation statement: The following information was validated with the patient. (all information validated with the patient's ) Source: old records reviewed, obtained from family (patient's provided additional history and confirmed the history provided by the patient. ) and nursing notes reviewed Medical History PTSD (post-traumatic stress disorder) Social History Social History Household Members: Spouse Housing: House Do you presently have visiting nurse or other home services: No Patient Tobacco Use Status: Never used Tobacco Advance Directives: No Advance Directives Information Provided: Yes Do you have a plan to hurt others: No Plan service: No Sexual orientation: Straight/Heterosexual Physical Exam ED Vital Signs: Vital Signs - 24 hr 04/26/25 11:21 04/26/25 12:05 Temperature 99.7 F 99.7 F Pulse Rate 100 100 Respiratory Rate 20 20 Blood Pressure 145/7 H 145/7 H Pulse Oximetry 100 100 Oxygen Delivery Method Room Air Room Air BMI result Body Mass Index 25.8 Const General: cooperative, alert and awake Orientation/consciousness: patient oriented x3 HENMT Head: Yes normal to inspection and Yes atraumatic Ears: hearing grossly normal bilaterally and external ears normal General nose exam: Normal external nose present, no nasal discharge noted and no epistaxis Face and sinus: Yes normal facial exam, No abrasion and No laceration Mouth: Normal oral and palatal mucosa present, no drooling and no muffled voice Eyes General: appearance normal, both eyes and all related structures Periorbital: periorbital findings normal Eyelids: Yes eyelids normal Conjunctivae: conjunctivae normal Pupils: Equal, round and reactive pupils present EOM: EOMs intact bilaterally Resp Effort & Inspection: normal respiratory effort and able to speak in complete sentences Neuro General: patient oriented x3, moves all extremities and CN's II-XI intact bilaterally Cranial nerves: Yes Equal, round and reactive pupils present Cognition (Neuro): normal cognition Extrem General: Yes full ROM Psych Appearance: grossly normal Mental Status: mental status grossly normal Attitude: cooperative Medications Administered Discontinued Medications Generic Name Dose Route Start Last Admin Trade Name Flip PRN Reason Stop Dose Admin Alprazolam 1 mg 04/26/25 11:24 04/26/25 12:00 Alprazolam 0.5 Mg Tablet PO 04/26/25 11:25 1 mg ONCE ONE Administration Amphetamine/Dextroamphetamine 20 mg 04/26/25 11:24 04/26/25 12:00 Dextroamphetamine/Amphetamine Xr 10 Mg Cap.Er.24h PO 04/26/25 11:25 20 mg ONCE ONE Administration [place] Carbonate 300 mg 04/26/25 11:24 04/26/25 12:00 [place] Carbonate Er 300 Mg Tablet.Er PO 04/26/25 11:25 300 mg ONCE ONE Administration Medical Decision Making Medical Decision Making MDM Narrative: Patient is a 39 year old female with a history of HTN, PTSD, ADHD, DM, and bipolar disorder presenting to the emergency department today for a medication dose. Patient's physical exam was as noted in the physical exam portion of this note. I explained my physical exam findings to the patient and the patient's . I answered all questions asked by the patient and the patient's . Patient was given a dose of her medications while in the department. I stressed the importance of the patient taking her medication as directed (either prescribed or as the over the counter packaging recommends). I stressed the importance of the patient following up with her primary care provider and her psychiatrist. I stressed the importance of the patient returning to the emergency department immediately if her symptoms were to worsen or if she were to develop any dizziness, shortness of breath, difficulty breathing, chest pain, blurry vision, loss of vision, nausea, vomiting, abdominal pain, fever, chills, back pain, or any other complaints. Patient and the patient's verbalized agreement and understanding with this treatment plan and discharge. Differential Diagnosis Differential Diagnoses: The differential diagnosis associated with the presentation includes Medication administration Admission/Observation Consideration of admission/observation: Escalation of care including admission/observation considered Patient would have been admitted to the hospital had her clinical presentation warranted hospital admission. Independent Historian Clinical information obtained from an independent historian. History obtained from or confirmed by: Spouse (patient's provided additional history and confirmed the history provided by the patient. ) Discharge Plan Discharge Clinical Impression: Medication administered Patient Disposition: Home, Self-Care Additional Instructions: You were given your medications today in the department. It is crucial you call your prescriber to get these medications continued. IF you are prescribed home medications and/or you are taking over the counter medications at home - it is very important you continue to do so as prescribed / directed unless told otherwise by a healthcare provider. Follow up with your primary care provider. Do your best to stay well hydrated and rest. Return to the emergency department immediately if you develop any thoughts of hurting yourself, thoughts of hurting others, numbness, tingling, dizziness, shortness of breath, difficulty breathing, chest pain, blurry vision, loss of vision, nausea, vomiting, abdominal pain, fever, chills, back pain, or any other complaints. Please see the information below about our Patient Portal. If you are not yet enrolled in the [facility] Patient Portal, you will receive an enrollment email invitation following your visit to any [facility] setting. You may also self-enroll in the Patient Portal by visiting our website: [email or web address] The following information is required to access the Patient Portal: - Your [facility] Medical Record Number - Your personal home email address (must match what is in your electronic medical record, Registration staff can assist with this) - Name - Date of Capabilities of the Patient Portal: - Message some providers - View upcoming appointments - Access your health summary, medical history, and visit history - View current conditions and allergies - View procedure and lab results - View your medications, including guidelines, side effects, and precautions - Complete pre-appointment questionnaires requested by your provider - Ready summary reports of your office visits and procedures To access the Patient Portal Mobile Emeli, follow these directions: - Search Fosubo in the Emeli Store or Google Play Store - Download the Emeli - Search for [facility] - Enter your login/password Prescriptions: No Action metformin 500 mg Tablet 500 mg PO BIDWM Qty: 14 0RF acetaminophen 325 mg Tablet 650 mg PO Q6H PRN (Reason: Pain, Mild (Pain Scale 1-3)) Qty: 0 0RF dextroamphetamine-amphetamine [Adderall XR] 10 mg Capsule,Extended Release 24hr 20 mg PO DAILY Qty: 7 0RF Rx Instructions: Partial Fill upon patient request. lithium carbonate 300 mg Tablet 300 mg PO DAILY Qty: 7 0RF nicotine (polacrilex) 2 mg Lozenge 2 mg buccal Q2H PRN (Reason: Nicotine Cravings) Qty: 50 0RF Mounjaro 15 mg/0.5 mL pen injector 15 mg subcut QWEEK Qty: 2 0RF alprazolam [Xanax] 2 mg tablet 2 mg PO BID Qty: 14 0RF Referrals: Emmie Khan MD [Primary Care Provider, Internal Medicine] Interventions: ED Discharge Assessment Last Done: 04/26/25 12:05 Discharge Date/Time: 04/26/25 12:05 Print Language: Wallisian
--- OUTSIDE RECORDS SUMMARY | 2025-04-26 11:37 | XMS_ITS | Patient Health Record ---
Author Organization [facility] Address [address] [place] [address] Care Team Providers Care Legal Summer Intern Name Role Phone NO, PCP Primary Care Provider [facility], Nursing Unavailable [phone] Poly Zhong Unavailable [facility], W Unavailable [phone] Reason For Referral No Information Encounters Encounter Location Date Provider Diagnosis [address] [id number] 03/24/2025 [id number] [place] [address] 04/02/2025 [facility] [address] [place] [phone] 03/20/2025 Poly Zhong Plan Of Treatment Next Appt Details Provider Name:Nursing [facility], 06/05/2025 01:00:00 PM, [address] [place] [address], [phone], Insurance Providers Payer Name Payer Address Payer Phone Subscriber Number Group Number Insured Name Patient Relationship to Insured Coverage Start Date Coverage End Date [place] [address] [place] [phone] [id number] Genevieve Akers Self - patient is the insured
--- OUTSIDE RECORDS SUMMARY | 2025-04-26 11:37 | XMS_ITS ---
Author Organization Unknown ENCOUNTERS Encounter Performer Location Date Diagnosis [place] [address] [id number] [place] [address] [id number] [facility] *Note: Encounters from your own facility or health system may be excluded. Allergies, Adverse Reactions, Alerts Allergen Type Severity Identification Date Medications Name Date Quantity Days Supplied GPI Number
[2025-04-26] MEDS: Dextroamphetamine/Amphetamine XR 10 MG CAP.ER.24H 20 MG PO (12:00)
[2025-04-26 12:05] VITALS: BP 145/7; PULSE 100; RESP 20; TEMP 37.6; O2SAT 100
== END 2025-04-26 12:05 | disposition home or self-care (01) ==
PROVIDERS: Emergency Provider Emergency Medicine; PCP Student in an Organized Health Care Education/Training Program
DX: F31.9 Bipolar disorder, unspecified (principal); I10 Essential (primary) hypertension; Z76.0 Encounter for issue of repeat prescription; F43.10 Post-traumatic stress disorder, unspecified; Z79.899 Other long term (current) drug therapy
CPT/HCPCS: 99282; 99283

== ENCOUNTER 2025-04-28 11:01 | Emergency (ER) | payer MEDICARE, MEDICAID, SELFPAY ==
[2025-04-28 11:53] VITALS: BP 149/85; PULSE 106; RESP 16; TEMP 37; O2SAT 100; BMI 26.6
--- NOTE | 2025-04-28 11:53 | ED.GENADULT ---
HPI - General Adult General Chief complaint: General Medical Stated complaint: med refill? Time Seen by Provider: 04/28/25 11:59 Source: patient, RN notes reviewed and old records reviewed Mode of arrival: ambulatory History of Present Illness ED Provider: Judith Berg PA-C HPI narrative: 39-year-old female with a past medical history of diabetes, ADHD, bipolar, presenting to ED requesting doses of her lithium, Adderall, and Xanax. Patient was recently admitted to inpatient psychiatric unit on 04/16, signed out AMA on 04/17 -was given 7 day prescriptions of her medications and told to follow up with outpatient providers however states her appointment is on 06/01/2025. Patient presented to the ED on 04/26 and received 1 time doses of these medications which she is now requesting again. States they have tried to go to [facility] but they do not have prescribers there. Related Data Previous Rx's ?Medication ?Instructions ?Recorded acetaminophen 325 mg tablet 650 mg (2 x 325 mg) PO Q6H PRN 04/17/25 Pain, Mild (Pain Scale 1-3) #0 tabs alprazolam 2 mg tablet (Xanax) 2 mg PO BID #14 tabs 04/17/25 dextroamphetamine-amphetamine ER 20 mg (2 x 10 mg) PO DAILY #7 caps 04/17/25 10 mg 24hr capsule,extend release (Adderall XR) lithium carbonate 300 mg tablet 300 mg PO DAILY #7 tabs 04/17/25 metformin 500 mg tablet 500 mg PO BIDWM #14 tabs 04/17/25 nicotine (polacrilex) 2 mg buccal 2 mg buccal Q2H PRN Nicotine 04/17/25 lozenge Cravings #50 ea tirzepatide 15 mg/0.5 mL 15 mg (0.5 mL) subcut QWEEK #2 mL 04/17/25 subcutaneous pen injector ([place]) Allergies Allergy/AdvReac Type Severity Reaction Status Date / Time No Known Allergies Allergy Verified 04/28/25 11:58 Review of Systems Review of Systems: Yes all other systems are reviewed and are negative Constitutional: Constitutional: Reports as per [facility] Past Medical History Attestation statement: The following information was validated with the patient. Source: old records reviewed Medical History PTSD (post-traumatic stress disorder) Social History Social History Household Members: Spouse Housing: House Do you presently have visiting nurse or other home services: No Patient Tobacco Use Status: Never used Tobacco Advance Directives: No Advance Directives Information Provided: No service: No Sexual orientation: Straight/Heterosexual Physical Exam ED Vital Signs: Vital Signs - 24 hr 04/28/25 11:53 Temperature 98.6 F Pulse Rate 106 H Respiratory Rate 16 Blood Pressure 149/85 H Pulse Oximetry 100 Oxygen Delivery Method Room Air BMI result Body Mass Index 26.6 Const General: cooperative, healthy appearing and no acute distress Orientation/consciousness: patient oriented x3 Limitations: no limitations HENMT Head: Yes normal to inspection and Yes atraumatic Ears: hearing grossly normal bilaterally General nose exam: Normal external nose present Face and sinus: Yes normal facial exam Eyes General: appearance normal, both eyes and all related structures EOM: EOMs intact bilaterally Neck Neck: Yes normal visual inspection and Yes no meningeal signs Resp Effort & Inspection: normal respiratory effort and no respiratory distress Cardio Rate: regular rate GI Inspection: Yes normal to inspection Skin Rashes: no rashes Wounds: no wounds Neuro General: patient oriented x3, tone normal and no meningeal signs Cranial nerves: Yes CN's II-XII intact bilaterally Gait exam (Neuro): Normal gait present Extrem General: Yes normal to inspection Medical Decision Making Medical Decision Making MDM Narrative: 39-year-old female with a past medical history of diabetes, ADHD, bipolar, presenting to ED requesting doses of her lithium, Adderall, and Xanax. Notes reviewed from patient's recent admission. Reached out to psychiatric specialist Marley -they do not recommend giving patient additional doses of her medications or prescriptions from the emergency department. Patient was supplied with multiple places to follow-up with outpatient providers. Patient's labs/lithium levels need to be closely monitored. This should not be done from the ED. This was discussed at length with patient Please refer to course for remaining clinical decision making, interpretation of labs/imaging results, and discussions with consultants and/or family members. Results discussed with patient including worrisome signs and symptoms and strict return precautions, and when to return to the emergency department. They verbalized understanding and feel safe for discharge at this time. Differential Diagnosis Differential Diagnoses: The differential diagnosis associated with the presentation includes As above Consult Healthcare Provider Management of the patient was discussed with: Behavioral Health Provider Independent Historian Clinical information obtained from an independent historian. History obtained from or confirmed by: Spouse External Record Review External record reviewed: Inpatient record, Office record, Outpatient record, Prior outpatient labs, Prior outpatient radiology, Primary care record and Outside ED record Tests considered The following testing was considered but not selected: As above Prescription Management I considered prescription management with: Other Chronic Conditions Patient?s care impacted by: Other Social Determinants Patient?s care significantly limited by Social Determinants of Health including: Inadequate housing, Low income, Alcoholism and drug addiction in family, Problems related to primary support group, Unemployment, Problems related to employment and Other Social Determinant of Health Discharge Plan Discharge Clinical Impression: Medication refill Patient Disposition: Home, Self-Care Instructions: Medicine Refill (ED) Additional Instructions: You need to follow-up with your outpatient providers as discussed for evaluation and your medication refills We can not refill or give you additional medication doses here today [facility] [Other] - 1 Week Referral Note: You may walk-in at the above address M-F 8am-7pm or Sat/Sun 9am-5pm, or call the above number to schedule an intake appointment to be referred for outpatient mental health providers and/or case management services. [facility]: [facility] ([facility]) [Other] - 1 Week Referral Note: You may walk-in at the above address M-F 8am-7pm or Sat/Sun 9am-5pm, or call the above number to schedule an intake appointment to be referred for outpatient mental health providers and/or case management services. Prescriptions: No Action metformin 500 mg Tablet 500 mg PO BIDWM Qty: 14 0RF acetaminophen 325 mg Tablet 650 mg PO Q6H PRN (Reason: Pain, Mild (Pain Scale 1-3)) Qty: 0 0RF dextroamphetamine-amphetamine [Adderall XR] 10 mg Capsule,Extended Release 24hr 20 mg PO DAILY Qty: 7 0RF Rx Instructions: Partial Fill upon patient request. lithium carbonate 300 mg Tablet 300 mg PO DAILY Qty: 7 0RF nicotine (polacrilex) 2 mg Lozenge 2 mg buccal Q2H PRN (Reason: Nicotine Cravings) Qty: 50 0RF Mounjaro 15 mg/0.5 mL pen injector 15 mg subcut QWEEK Qty: 2 0RF alprazolam [Xanax] 2 mg tablet 2 mg PO BID Qty: 14 0RF Referrals: [facility] [Provider Group, Psychiatry] Discharge Date/Time: 04/28/25 13:29 Print Language: Thai
--- OUTSIDE RECORDS SUMMARY | 2025-04-28 16:48 | XMS_ITS | Patient Health Record ---
Author Organization [facility] Address [address] [place] [address] Care Team Providers Care Detail Maker And Fitter Name Role Phone NO, PCP Primary Care Provider [phone] [facility], Nursing Unavailable [phone] Poly Zhong Unavailable [phone] [facility], W Unavailable [phone] Reason For Referral No Information Encounters Encounter Location Date Provider Diagnosis [address] [id number] 03/24/2025 [id number] [place] [address] 04/02/2025 [facility] [address] [place] [address] [phone] 03/20/2025 Poly Zhong Plan Of Treatment Next Appt Details Provider Name:Nursing [facility], 06/05/2025 01:00:00 PM, [address] [place] [address], [id number], Insurance Providers Payer Name Payer Address Payer Phone Subscriber Number Group Number Insured Name Patient Relationship to Insured Coverage Start Date Coverage End Date [place] Medicaid Standard [address] [place] [address] [phone] [id number] Genevieve Akers Self - patient is the insured
--- OUTSIDE RECORDS SUMMARY | 2025-04-28 16:48 | XMS_ITS ---
Author Organization Unknown ENCOUNTERS Encounter Performer Location Date Diagnosis Diagnosis [place] [address] [id number] [place] [address] [id number] [facility] *Note: Encounters from your own facility or health system may be excluded. Allergies, Adverse Reactions, Alerts Allergen Type Severity Identification Date Medications Name Date Quantity Days Supplied GPI Number
== END 2025-04-28 13:29 | disposition home or self-care (01) ==
PROVIDERS: Emergency Provider Emergency Medicine
DX: Z76.0 Encounter for issue of repeat prescription (principal); F90.9 Attention-deficit hyperactivity disorder, unspecified type; F31.9 Bipolar disorder, unspecified; F43.10 Post-traumatic stress disorder, unspecified; I10 Essential (primary) hypertension; E11.9 Type 2 diabetes mellitus without complications
CPT/HCPCS: 99281